=== PATIENT | female | born 1980 | race Caucasian/White ===

== ENCOUNTER 2020-06-03 16:26 | Emergency (ER) | payer OTHER, BC, SELFPAY ==
[2020-06-03 16:30] VITALS: BP 184/87; PULSE 99; RESP 18; TEMP 37.1; O2SAT 99; BMI 37.2
--- NOTE | 2020-06-03 17:42 | DI.RAD.S_ITS ---
PROCEDURE: XR FINGER RT MIN 2V INDICATIONS: cat bite TECHNIQUE: AP hand, 2 views of the 1st finger(s) acquired. COMPARISON: None. FINDINGS: Bones: No fractures or dislocations. No suspicious bony lesions. Soft tissues: No suspicious soft tissue calcifications. No radiopaque foreign bodies are seen. IMPRESSION: No focal bony abnormality is seen. No radiopaque foreign bodies are seen. If there is strong suspicion for developing osteomyelitis, please consider a dedicated MRI without and with contrast for further evaluation (assuming that there is no contraindication to MRI). Dictated by: Chemo Ramos M.D. on 06/03/2020 at 17:02 Approved by: Chemo Ramos M.D. on 06/03/2020 at 17:03
[2020-06-03] MEDS: TET,DIPH,PERTUSS(ACELL),VAC/PF 0.5 ML SYRINGE IM (18:20)
[2020-06-03] MEDS: KETOROLAC 60 MG/2 ML VIAL 30 MG IM (18:53)
[2020-06-03] MEDS: AMOXICILLIN/CLAV 875/125 MG 1 TAB PO (18:53)
--- NOTE | 2020-06-03 20:21 | ED.ANIMALBIT ---
HPI - Animal Bite <TAYE Ivey-BC - Last Filed: 06/03/20 20:30> General Chief Complaint: Animal Bite Stated Complaint: bit by a cat, right hand thumb Time Seen by Provider: 06/03/20 17:33 Source: patient Mode of arrival: Ambulatory Limitations: no limitations History of Present Illness HPI narrative: The patient is a 40-year-old female current smoker with history of diabetes who presents with a chief complaint of a cat bite earlier today. She states that she does not know when her last tetanus shot was. The cat was [place], trying to escape people and was eventually detained by police. She states that the bite was on her right thumb. She states she that she can flex and extend her thumb, though it hurts to do so. Related Data Home Medications Medication Instructions Recorded Confirmed INSULIN GLARGINE 10ML (LANTUS) #0 01/24/04 INSULIN HUMAN LISPRO 10ML (HUMALOG) 2 units SQ #0 03/06/08 Previous Rx's Medication Instructions Recorded amoxicillin-pot clavulanate 1 tab PO BID 10 Days #20 tab 06/03/20 [Augmentin] fluconazole 150 mg PO Q3D #2 tab 06/03/20 ketorolac 10 mg PO TID PRN #15 tab 06/03/20 Allergies Allergy/AdvReac Type Severity Reaction Status Date / Time droperidol [From INAPSINE] Allergy Unknown Verified 06/03/20 16:37 Review of Systems <TAYE Ivey-BC - Last Filed: 06/03/20 20:30> Review of Systems Narrative: GENERAL: Denies chills, fatigue, malaise, fever, sweats. HEENT: Denies sinus pain, ear pain, sore throat, difficulty swallowing, dizziness. RESPIRATORY: Denies dyspnea, cough, wheezing, hemoptysis, sputum. CARDIOVASCULAR: Denies chest pain, palpitations, orthopnea, edema, GASTROINTESTINAL: Denies nausea, vomiting, abdominal pain, diarrhea, constipation, melena. : Denies dysuria, frequency, incontinence, hematuria, urinary retention. MUSCULOSKELETAL: See HPI SKIN: See HPI NEUROLOGIC: Denies weakness, headache, numbness, change in speech, confusion, seizures, incoordination. PSYCHIATRIC: No concerning psychosocial issues. 12 point review of systems is negative except for those stated above Patient History <CAITLYN Ivey - Last Filed: 06/03/20 20:30> Social History Smoking Status: Current every day smoker Smoking Status: Current every day smoker tobacco type: cigarettes alcohol intake frequency: 0-2 drinks per day Substance Use Type: marijuana Exam <CAITLYN Ivey - Last Filed: 06/03/20 20:30> Narrative Exam Narrative: GENERAL: This is a well-nourished, well-developed patient, in no acute distress HEAD: Atraumatic. Normocephalic. No temporal or scalp tenderness. EYES: Pupils equal round and reactive. Extraocular motions intact. No scleral icterus. No injection or drainage. ENT: Nose without bleeding, purulent drainage or septal hematoma. Wearing mass Airway patent. NECK: Trachea midline. No JVD or lymphadenopathy. Supple, nontender, no meningeal signs. CARDIOVASCULAR: Regular rate and rhythm RESPIRATORY: No cough. No increased respiratory effort. No accessory muscle use. EXTREMITIES: Skin exam as noted for right 1st digit. Able to flex and extend right 1st digit against resistance. Capillary refill less than 2 seconds. Positive right radial pulse. BACK: Nontender without deformity or crepitance. No flank tenderness. NEURO: AOx3. SKIN: Small puncture rizo over the DIP right 1st digit. No extending erythema. No purulent drainage. Initial Vital Signs Initial Vital Signs: Vital Signs Temperature 98.8 F 06/03/20 16:30 Pulse Rate 99 H 06/03/20 16:30 Respiratory Rate 18 06/03/20 16:30 Blood Pressure 184/87 H 06/03/20 16:30 Pulse Oximetry 99 06/03/20 16:30 <Sunni Lea DO - Last Filed: 06/04/20 07:34> Initial Vital Signs Initial Vital Signs: Vital Signs Temperature 98.8 F 06/03/20 16:30 Pulse Rate 99 H 06/03/20 16:30 Respiratory Rate 18 06/03/20 16:30 Blood Pressure 184/87 H 06/03/20 16:30 Pulse Oximetry 99 06/03/20 16:30 Scores <CAITLYN Ivey - Last Filed: 06/03/20 20:30> GCS Pastor coma scale eye opening: Spontaneous Pastor coma scale verbal response: Orientated [place] coma scale motor response: Obey commands Pastor coma scale total score: 15 Course <CAITLYN Ivey - Last Filed: 06/03/20 20:30> Orders Ordered: Discontinued Medications Amoxicillin/Clavulanate Potassium (Augmentin 875-125 Mg) 1 tab PO NOW ONE Stop: 06/03/20 18:31 Last Admin: 06/03/20 18:53 Dose: 1 tab Documented by: THONY Diphtheria/Tetanus/Acell Pertussis (Adacel) 0.5 ml IM .ONCE ONE Stop: 06/03/20 17:43 Last Admin: 06/03/20 18:20 Dose: 0.5 ml Documented by: THONY Ketorolac Tromethamine (Toradol) 30 mg IM NOW ONE Stop: 06/03/20 18:46 Last Admin: 06/03/20 18:53 Dose: 30 mg Documented by: THONY Vital Signs Vital signs: Vital Signs - 8 hr 06/03/20 16:30 Temperature 98.8 F Pulse Rate 99 H Respiratory Rate 18 Blood Pressure 184/87 H Pulse Oximetry 99 <Sunni Lea DO - Last Filed: 06/04/20 07:34> Orders Ordered: Discontinued Medications Amoxicillin/Clavulanate Potassium (Augmentin 875-125 Mg) 1 tab PO NOW ONE Stop: 06/03/20 18:31 Last Admin: 06/03/20 18:53 Dose: 1 tab Documented by: THONY Diphtheria/Tetanus/Acell Pertussis (Adacel) 0.5 ml IM .ONCE ONE Stop: 06/03/20 17:43 Last Admin: 06/03/20 18:20 Dose: 0.5 ml Documented by: THONY Ketorolac Tromethamine (Toradol) 30 mg IM NOW ONE Stop: 06/03/20 18:46 Last Admin: 06/03/20 18:53 Dose: 30 mg Documented by: THONY Vital Signs Vital signs: Vital Signs - 8 hr 06/03/20 16:30 Temperature 98.8 F Pulse Rate 99 H Respiratory Rate 18 Blood Pressure 184/87 H Pulse Oximetry 99 MDM - Animal Bite <CAITLYN Ivey - Last Filed: 06/03/20 20:30> Differential Diagnosis Differential diagnosis: Likely bite by animal, cat bite and rabies contact Imaging Data Extremity x-ray #1: Radiologist's Impression: [address] [place] [id number] XRay Report Signed Patient: Mi Matthews LMR#: [id number] : 1980Acct:[id number] Age/Sex: 40 / FDate of Service: 06/03/20 Loc: ED Accession Number: [id number] Procedure: XR finger RT min 2V Ordering Provider: Clarita Desouza- PROCEDURE: XR FINGER RT MIN 2V INDICATIONS: cat bite TECHNIQUE: AP hand, 2 views of the 1st finger(s) acquired. COMPARISON: None. FINDINGS: Bones: No fractures or dislocations. No suspicious bony lesions. Soft tissues: No suspicious soft tissue calcifications. No radiopaque foreign bodies are seen. IMPRESSION: No focal bony abnormality is seen. No radiopaque foreign bodies are seen. If there is strong suspicion for developing osteomyelitis, please consider a dedicated MRI without and with contrast for further evaluation (assuming that there is no contraindication to MRI). Dictated by: Chemo Ramos M.D. on 06/03/2020 at 17:02 Approved by: Chemo Ramos M.D. on 06/03/2020 at 17:03 [facility] Narrative Medical decision making narrative: The patient is a 40-year-old female who presents with a chief complaint of cat bite earlier today. Her tetanus was updated as she does not know when her previous tetanus was. She has reassuring range of motion, no obvious infection. She is able to flex and extend her right 1st digit, is neurovascularly intact. The cat was obtained by police, who will monitor the cap for rabies symptoms. Thus we will hold off on post exposure prophylaxis for rabies as per up-to-date recommendations. Encouraged follow-up with primary care provider in the next few days. Patient was given Augmentin prescription, discussed taking with probiotic or yogurt. Patient was able to tolerate 1st dose of antibiotics in the emergency department. Also gave Toradol for pain, patient states she gets common yeast infections after antibiotics and requested Diflucan which I did give her prescription of. Patient has no questions or concerns upon discharge and states understanding return precautions as well as follow-up care. Discharge Plan Departure Patient Disposition: Home Clinical Impression: Cat bite Qualifiers: Encounter type: initial encounter Qualified Code(s): W55.01XA - Bitten by cat, initial encounter Discharge Date/Time: 06/03/20 19:53 Instructions: DI for Animal Bites, How To Perform RICE (Rest, Ice, Compress, Elevate), DI for Cat Bite Activity Restrictions/Additional Instructions: Thank you for trusting us with your care today. I am sorry that you are bit by a cat in which you a speedy recovery. I sent in 3 prescriptions to [facility]. Please take a probiotic or yogurt with the antibiotic. Please follow-up with primary care provider in the next 48-72 hours. Please monitor for extending redness, purulent drainage etcetera Please come back to the emergency department for any acute concerns. Please use rest ice compression elevation I have given you a prescription of Toradol. This is an NSAID. Do not combine it with other NSAIDs such as Aleve or ibuprofen. I suggest taking it with some food, as it can irritate your stomach. Additionally follow-up with samara FLORES as well as her primary care provider regarding the status of the cat Prescriptions: New amoxicillin-pot clavulanate [Augmentin] 875-125 mg tablet 1 tab PO BID 10 Days Qty: 20 RF: 0 ketorolac 10 mg tablet 10 mg PO TID PRN (Reason: pain) Qty: 15 RF: 0 fluconazole 150 mg tablet 150 mg PO Q3D Qty: 2 RF: 0 No Action INSULIN GLARGINE 10ML (LANTUS) Qty: 0 RF: 0 INSULIN HUMAN LISPRO 10ML (HUMALOG) 2 units SQ Qty: 0 RF: 0 Referrals: Herminia Tracey MD [Non-Staff] - <Sunni Lea DO - Last Filed: 06/04/20 07:34> Cosign ED Attending Glennaature Attestation: I was immediately available in the department for consultation. Documentation has been reviewed. I agree with assessment and plan.
== END 2020-06-03 19:53 | disposition home or self-care (01) ==
PROVIDERS: Emergency Provider Nurse Practitioner Family
DX: S61.051A Open bite of right thumb without damage to nail, initial encounter (principal); W55.01XA Bitten by cat, initial encounter; Z23 Encounter for immunization; Y99.0 Civilian activity done for income or pay
CPT/HCPCS: 73140; 90471; 96372; 99283; 90715; J1885

== ENCOUNTER → 2021-03-12 12:48 | Outpatient (CLI) | payer BC, SELFPAY ==
--- NOTE | 2021-03-12 | DI.US.S_ITS ---
PROCEDURE: US THYROID INDICATIONS: AUTOIMMUNE THYROIDITIS TECHNIQUE: Real-time scanning was performed of the thyroid gland, with image documentation. COMPARISON: None. FINDINGS: Right: Thyroid lobe measures 5.2 x 1.6 x 1.6 cm, and is diffusely heterogeneous in echotexture. Left: Thyroid lobe measures 4.2 x 1.5 x 1.3 cm, and is diffusely heterogeneous in echotexture. Isthmus: 5.1 mm thick. IMPRESSION: Diffusely heterogeneous thyroid in this patient with history of autoimmune thyroiditis. Dictated by: Cyrus CERVANTES Interpreted: Rashmi Calvin MD on 03/12/2021 at 17:00 Transcribed by: LEIDA on 03/12/2021 at 17:01 Approved by: Rashmi Calvin M.D. on 03/12/2021 at 17:37
== END ==
PROVIDERS: PCP Family Medicine; Referring Provider Family Medicine; Visit Provider Family Medicine
DX: E06.3 Autoimmune thyroiditis (principal)
CPT/HCPCS: 76536

== ENCOUNTER → 2022-09-02 15:01 | Outpatient (CLI) | payer BC, SELFPAY ==
--- NOTE | 2022-10-15 07:46 | P.HOLT.S_ITS ---
Information Engineer Report Referral & Results Date Patient Seen: 09/02/22 Requesting provider: Redd Suresh Indication: Palpitations Duration of monitoring (days): 6 Diary information: There were 21 patient triggered events and 1 patient diary entry Patient triggered events were variably associated with sinus rhythm and PVCs. Patient diary event could not be located Data: Minimum heart rate identified was 65 beats per minute at 05:08 on 09/03/2022 Maximum sinus heart rate was 145 beats per minute at 11:20 on 09/03/2022 Maximum overall heart rate was 174 beats per minute at 11:38 on 09/03/2022 during a run of ventricular tachycardia Less than 1% of identified beats were ventricular or supraventricular ectopic in origin, which would classify them as rare. There was 1 run of nonsustained monomorphic ventricular tachycardia that was 14 beats in duration at a maximum rate of 174 beats per minute There were no pauses of 3 seconds or longer or episodes of atrial fibrillation identified on this study Impression: 6 day sign painter demonstrating PVCs as a likely source of patient's sense of palpitations. Overall frequency of PVCs should be considered rare based on this study Single episode of nonsustained ventricular tachycardia as above Clinical correlation suggested
== END ==
PROVIDERS: PCP Family Medicine; Referring Provider Family Medicine; Visit Provider Family Medicine
DX: R00.2 Palpitations (principal)
CPT/HCPCS: 93244; 93246

== ENCOUNTER → 2022-12-30 08:55 | Outpatient (CLI) | payer BC, SELFPAY ==
--- NOTE | 2022-12-30 | DI.CT.S_ITS ---
PROCEDURE: CT ABDOMEN PELVIS W CON INDICATIONS: Left lower quadrant pain TECHNIQUE: After the administration of oral and IV contrast, axial sections were acquired from the lung bases to the pubic symphysis. Coronal and sagittal reformats were performed. For radiation dose reduction, the following was used: automated exposure control, adjustment of mA and/or kV according to patient size. COMPARISON: [facility], CT, ABD/PELVIS W/CON (PNL), 07/21/2014, 22:26. [facility], CT, CT KUB, 01/04/2016, 14:45. [facility], CT, ABDOMEN/PELVIS WITH CONTRAST, 04/18/2006, 16:06. [facility], CT, ABDOMEN/PELVIS WITH CONTRAST, 06/06/2017, 20:53. CT, CT ABD HEPATIC PROTOCOL, 01/10/2016, 16:37. FINDINGS: Image quality: Excellent. Lung bases: There are a couple of small 2-3 mm nodules in the left lower lobe (series 3 image 1 and 2) which were present on 06/06/2017, likely benign. Small hiatal hernia. Heart: No significant findings. ABDOMEN: Liver: Normal size. A 0.7 cm hypodense nodule is seen in segment 4 unchanged in size and appearance. Gallbladder: There is a small calcific density projecting to the posterior of gallbladder. Biliary ducts: Unremarkable. Pancreas: Unremarkable. Spleen: Unremarkable. Adrenal Glands: Unremarkable. Kidneys and Ureters: Unremarkable. Stomach and Bowel: Stomach, small bowel loops, and colon are unremarkable. There is a moderate amount of stool in colon. Normal appendix. Peritoneum: No abnormal intraperitoneal fluid. No free air. Ventral Wall: No hernia. Abdominal Nodes: No retroperitoneal or mesenteric adenopathy by size criteria. Vessels: Aorta and inferior vena cava are normal in size. PELVIS: Pelvic Organs: Uterus and ovaries are normal. There is an IUD. Bladder: Unremarkable. Pelvic Nodes: No enlarged lymph nodes. Miscellaneous: No inguinal hernias are seen. Bones: Unremarkable. IMPRESSION: 1. A cause for left lower quadrant abdominal pain is not identified. 2. Stable small left lower lobe pulmonary nodules, likely benign. 3. A 0.7 cm hypodense nodule in segment [address] liver protocol suggests focal nodular hyperplasia. MRI would be helpful for confirmation. 4. Possible gallstones vs. gallbladder wall calcification. Recommend ultrasound for further evaluation. 5. IUD in uterus. Dictated by: Vamshi Colon M.D. on 12/30/2022 at 14:51 Approved by: Vamshi Colon M.D. on 12/31/2022 at 8:20
== END ==
PROVIDERS: PCP Family Medicine; Referring Provider Family Medicine; Visit Provider Family Medicine
DX: R10.32 Left lower quadrant pain (principal); R91.8 Other nonspecific abnormal finding of lung field; K76.9 Liver disease, unspecified; Z97.5 Presence of (intrauterine) contraceptive device
CPT/HCPCS: 74177; Q9967

== ENCOUNTER → 2023-01-10 08:48 | Outpatient (CLI) | payer BC, SELFPAY ==
--- NOTE | 2023-01-10 | DI.US.S_ITS ---
PROCEDURE: US ABDOMEN LIMITED INDICATIONS: CALCULUS OF GALLBLADDER TECHNIQUE: Real-time scanning was performed of the abdominal and retroperitoneal organs, with image documentation. COMPARISON: None. FINDINGS: Liver: Liver is normal in size and homogeneous in echotexture. Gallbladder: Gallbladder is normal in sonographic appearance without gallstones, gallbladder wall thickening, pericholecystic fluid, or abnormal sonographic Linda's. Biliary ducts: Intrahepatic bile ducts are non-dilated. Extrahepatic bile duct caliber measures 4 mm. Normal is 6-7 mm or less in diameter, or 10 mm or less post-cholecystectomy. Pancreas: Visualized portions of the pancreas are sonographically normal. Miscellaneous: No free abdominal fluid. IMPRESSION: Normal sonographic evaluation of the right upper quadrant. Specifically, no evidence for cholelithiasis or acute cholecystitis. Normal sonographic appearance of the liver. Dictated by: Hank Stover M.D. on 01/10/2023 at 12:49 Approved by: Hank Stover M.D. on 01/10/2023 at 12:50
== END ==
PROVIDERS: PCP Family Medicine; Referring Provider Family Medicine; Visit Provider Family Medicine
DX: K80.20 Calculus of gallbladder without cholecystitis without obstruction (principal)
CPT/HCPCS: 76705

== ENCOUNTER 2023-01-10 10:27 | Emergency (ER) | payer BC, SELFPAY ==
[2023-01-10 11:00] VITALS: BP 136/80; PULSE 78; RESP 14; TEMP 36.3; O2SAT 99; BMI 37.2
[2023-01-10] MEDS: SODIUM CHLORIDE 0.9% 1,000 ML 1000 ML IV (11:37)
[2023-01-10] MEDS: KETOROLAC 30 MG/ML VIAL 15 MG IV (11:37)
[2023-01-10] MEDS: ONDANSETRON 4 MG/2 ML INJ IV (11:38)
[2023-01-10 11:42] LABS: Add Manual Diff / Slide Review NO; Basophils Absolute Auto 100 /uL (0-100); Basophils Percent Auto 0.6 % (0-2); Eosinophils Absolute Auto 300 /uL (0-450); Eosinophils Percent Auto 2.5 % (2-4); Hematocrit 34.4 % (36-46); Lymphocytes Absolute Auto 3500 /uL (1100-4500); Mean Corpuscular Hemoglobin 21.1 PG (26-34); Mean Corpuscular Volume 65.9 fL (80-100); Monocytes Absolute Auto 700 /uL (0-900); Neutrophils Absolute Auto 5400 /uL (1500-7000); Neutrophils Percent Auto 54.9 % (50-75); Platelet Count 448 X10^3/uL (150-400); Red Blood Cell Count 5.22 X10^6/uL (4.0-5.2); Red Cell Distribution Width 18.6 % (11.6-14.8); White Blood Cell Count 9.9 X10^3/uL (4.5-11.0)
[2023-01-10 11:50] LABS: Anisocytosis 1+
[2023-01-10 11:54] LABS: Alanine Aminotransferase 28 IU/L (<35); Albumin 4.7 g/dL (3.5-5.0); Albumin Globulin Ratio 1.1 (1.0-2.8); Alkaline Phosphatase 84 U/L (38-126); Aspartate Aminotransferase 28 IU/L (14-36); BUN Creatinine Ratio 14.5 (6-22); Bilirubin Total 0.5 mg/dL (0.2-1.3); Blood Urea Nitrogen 9 mg/dL (7-17); Calcium 9.3 mg/dL (8.4-10.2); Carbon Dioxide 29 mmol/L (22-32); Chloride 102 mmol/L (98-107); Estimated Glomerular Filt Rate > 60 mL/min (>60); Globulin 4.1 g/dL (1.7-4.1); Glucose 78 mg/dL (70-100); HEMOLYSIS < 15 (0-50); Potassium 3.8 mmol/L (3.4-5.1); Sodium 140 mmol/L (137-145); Total Protein 8.8 g/dL (6.3-8.2)
--- NOTE | 2023-01-10 12:04 | ED.ABDPAIN ---
HPI - Abdominal Pain <Niko Morgan PA-C - Last Filed: 01/10/23 19:40> General Chief Complaint: Abdominal Pain Stated Complaint: extreme LT Flank pain/LOC 30sec/leg stop working Time Seen by Provider: 01/10/23 12:01 Source: patient Mode of arrival: Ambulatory History of Present Illness HPI narrative: This is a 42-year-old female with a history kidney stones presents emergency department due to bilateral flank pain. States that the pain began worsening significantly yesterday with the pain beginning on her left side and now has radiated to her right side although she is less states she has bilateral pain. Denies any hematuria, dysuria, vaginal discharge, abdominal pain, or any other concerning signs or symptoms. Also reports some nausea but no vomiting. States that the pain was so severe that it caused her to ?pass out? for about 30 seconds but did not hit her head. Related Data Home Medications Medication Instructions Recorded Confirmed INSULIN GLARGINE 10ML (LANTUS) ##0 01/24/04 INSULIN HUMAN LISPRO 10ML (HUMALOG) 2 units SQ ##0 03/06/08 bupropion HCl 150 mg 24 hr tablet, 150 mg PO QAM 11/30/20 11/30/20 extended release levonorgestrel 21 mcg/24 hours (8 intrauterine 11/30/20 11/30/20 yrs) 52 mg intrauterine device (Mirena) levothyroxine 200 mcg tablet 200 mcg PO DAILY 11/30/20 11/30/20 levothyroxine 25 mcg capsule 25 mcg PO DAILY 11/30/20 11/30/20 rosuvastatin 5 mg tablet 5 mg PO DAILY 11/30/20 11/30/20 Previous Rx's Medication Instructions Recorded fluconazole 150 mg tablet 150 mg PO Q3D 2 doses #2 tabs 06/03/20 clindamycin phosphate 1 % lotion 1 applic topical BID hidradenitis 11/30/20 supperativa #60 mL cyclobenzaprine 10 mg tablet 10 mg PO TID 7 days #21 tabs 01/10/23 Allergies Allergy/AdvReac Type Severity Reaction Status Date / Time droperidol [From INAPSINE] Allergy Unknown Verified 01/10/23 11:05 Review of Systems <Niko Morgan PA-C - Last Filed: 01/10/23 19:40> Review of Systems Narrative: GENERAL: Denies chills, fatigue, malaise, fever, sweats. HEENT: Denies sinus pain, ear pain, sore throat, difficulty swallowing, dizziness. RESPIRATORY: Denies dyspnea, cough, wheezing, hemoptysis, sputum. CARDIOVASCULAR: Denies chest pain, palpitations, orthopnea, edema, GASTROINTESTINAL: Reports nausea, denies vomiting, abdominal pain, diarrhea, constipation, melena. : Reports bilateral flank pain, Denies dysuria, frequency, incontinence, hematuria, urinary retention. MUSCULOSKELETAL: denies weakness, joint pain, or bony pain SKIN: Denies rash, skin lesions, or other NEUROLOGIC: Denies weakness, headache, numbness, change in speech, confusion, seizures, incoordination. PSYCHIATRIC: No concerning psychosocial issues. 12 point review of systems is negative except for those stated above Patient History <Niko Morgan PA-C - Last Filed: 01/10/23 19:40> Social History Smoking Status: Current every day smoker Smoking Status: Current every day smoker tobacco type: cigarettes alcohol intake frequency: 0-2 drinks per day Substance Use Type: marijuana Exam <Niko Morgan PA-C - Last Filed: 01/10/23 19:40> Narrative Exam Narrative: GENERAL: Well-developed patient, in mild distress. HEAD: Atraumatic. Normocephalic. EYES: Pupils equal round and reactive. Extraocular motions intact. No scleral icterus. No injection or drainage. ENT: Nose without bleeding, purulent drainage. Throat without erythema, tonsillar hypertrophy or exudate. Airway patent. NECK: Trachea midline. Non tender CARDIOVASCULAR: Regular rate and rhythm without murmurs, gallops, or rubs. RESPIRATORY: Clear to auscultation. Breath sounds equal bilaterally. No wheezes, rales, or rhonchi. GASTROINTESTINAL: Abdomen soft, non-tender, nondistended. EXTREMITIES: No edema or joint tenderness. BACK: Significant bilateral CVA tenderness to palpation. NEURO: AOx3. SKIN: No rash or erythema of visible areas Initial Vital Signs Initial Vital Signs: Vital Signs Temperature 97.3 F L 01/10/23 11:00 Pulse Rate 78 01/10/23 11:00 Respiratory Rate 14 01/10/23 11:00 Blood Pressure 136/80 01/10/23 11:00 Pulse Oximetry 99 01/10/23 11:00 Oxygen Delivery Method Room Air 01/10/23 11:00 <Sunni Lea DO - Last Filed: 01/11/23 08:31> Initial Vital Signs Initial Vital Signs: Vital Signs Temperature 97.3 F L 01/10/23 11:00 Pulse Rate 78 01/10/23 11:00 Respiratory Rate 14 01/10/23 11:00 Blood Pressure 136/80 01/10/23 11:00 Pulse Oximetry 99 01/10/23 11:00 Oxygen Delivery Method Room Air 01/10/23 11:00 Course <Niko Morgan PA-C - Last Filed: 01/10/23 19:40> Orders Ordered: Discontinued Medications Sodium Chloride (Normal Saline 0.9%) 1,000 mls @ 1,000 mls/hr IV BOLUS ONE Stop: 01/10/23 12:19 Last Infusion: 01/10/23 12:40 Dose: 0 mls/hr Documented By: Admin: 01/10/23 11:37 Dose: 1,000 mls/hr Documented By: NONI Ketorolac Tromethamine (Ketorolac 30 Mg/Ml Vial) 15 mg IV NOW ONE Stop: 01/10/23 11:20 Last Admin: 01/10/23 11:37 Dose: 15 mg Documented By: NONI Ondansetron HCl (Ondansetron 4 Mg/2 Ml Inj) 4 mg IV NOW ONE Stop: 01/10/23 11:20 Last Admin: 01/10/23 11:38 Dose: 4 mg Documented By: NONI Vital Signs Vital signs: Vital Signs - 8 hr 01/10/23 15:45 Pulse Rate 78 Respiratory Rate 16 Blood Pressure 138/85 Pulse Oximetry 99 Oxygen Delivery Method Room Air <Sunni Lea DO - Last Filed: 01/11/23 08:31> Orders Ordered: Discontinued Medications Sodium Chloride (Normal Saline 0.9%) 1,000 mls @ 1,000 mls/hr IV BOLUS ONE Stop: 01/10/23 12:19 Last Infusion: 01/10/23 12:40 Dose: 0 mls/hr Documented By: Admin: 01/10/23 11:37 Dose: 1,000 mls/hr Documented By: NONI Ketorolac Tromethamine (Ketorolac 30 Mg/Ml Vial) 15 mg IV NOW ONE Stop: 01/10/23 11:20 Last Admin: 01/10/23 11:37 Dose: 15 mg Documented By: NONI Ondansetron HCl (Ondansetron 4 Mg/2 Ml Inj) 4 mg IV NOW ONE Stop: 01/10/23 11:20 Last Admin: 01/10/23 11:38 Dose: 4 mg Documented By: NONI Vital Signs Vital signs: Vital Signs - 8 hr 01/10/23 15:45 Pulse Rate 78 Respiratory Rate 16 Blood Pressure 138/85 Pulse Oximetry 99 Oxygen Delivery Method Room Air MDM - Abdominal Pain <Niko Morgan PA-C - Last Filed: 01/10/23 19:40> Lab Data 01/10/23 11:30 01/10/23 11:30 Labs: Lab Results 01/10/23 01/10/23 01/10/23 Range/Units 11:30 11:30 11:30 WBC 9.9 (4.5-11.0) X10^3/uL RBC 5.22 H (4.0-5.2) X10^6/uL Hgb 11.0 L (12.0-16.0) g/dL Hct 34.4 L (36-46) % MCV 65.9 L (80-100) fL MCH 21.1 L (26-34) PG MCHC 32.0 (30-36) % RDW 18.6 H (11.6-14.8) % Plt Count 448 H (150-400) X10^3/uL Neut % (Auto) 54.9 (50-75) % Lymph % (Auto) 35.0 (25-40) % [place] % (Auto) 7.0 (3-14) % Eos % (Auto) 2.5 (2-4) % Baso % (Auto) 0.6 (0-2) % Neut # (Auto) 5400 (0195-7098) /uL Lymph # (Auto) 3500 (5928-6299) /uL [place] # (Auto) 700 (0-900) /uL Eos # (Auto) 300 (0-450) /uL Baso # (Auto) 100 (0-100) /uL RBC Morphology Not Reportable Anisocytosis 1+ H Sodium 140 (137-145) mmol/L Potassium 3.8 (3.4-5.1) mmol/L Chloride 102 (98-107) mmol/L Carbon Dioxide 29 (22-32) mmol/L BUN 9 (7-17) mg/dL Creatinine 0.62 (0.52-1.04) mg/dL Estimated GFR > 60 (>60) mL/min BUN/Creatinine Ratio 14.5 (6-22) Glucose 78 (70-100) mg/dL Calcium 9.3 (8.4-10.2) mg/dL Total Bilirubin 0.5 (0.2-1.3) mg/dL AST 28 (14-36) IU/L ALT 28 (<35) IU/L Alkaline Phosphatase 84 (38-126) U/L Total Protein 8.8 H (6.3-8.2) g/dL Albumin 4.7 (3.5-5.0) g/dL Globulin 4.1 (1.7-4.1) g/dL Albumin/Globulin Ratio 1.1 (1.0-2.8) Serum , Qual Negative (Negative) Point of care testing: Urine Dip Bedside Urine Glucose Negative Bedside Urine Bilirubin - Negative Bedside Urine Ketone - Negative Urine Specific Harper 1.005 Bedside Urine Occult Blood - Negative Bedside Urine pH 7.0 Bedside Urine Protein - Negative Bedside Urine Urobilinogen - Negative Bedside Urine Nitrite - Negative Bedside Urine Leukocytes - Negative Esterase Imaging Data CT scan - abdomen/pelvis: Radiologist's Impression: [place] [address] CT Scan Report Signed Patient: Mi Matthews MR#: [id number] : 1980 Acct:[id number] Age/Sex: 42 / F Date of Service: 01/10/23 Loc: ED Accession Number: [id number] ?? Procedure: CT abdomen pelvis w con Ordering Provider: Niko Morgan P.A-C PROCEDURE:? CT ABDOMEN PELVIS W CON ? INDICATIONS:? Bilat kidney pain ? TECHNIQUE:? After the administration of intravenous contrast, axial sections acquired from the lung bases to the pubic symphysis.? Coronal and sagittal reformats were performed.? For radiation dose reduction, the following was used:? automated exposure control, adjustment of mA and/or kV according to patient size.? ? COMPARISON:? [facility], CT, CT ABDOMEN PELVIS W CON, 12/30/2022, 10:39. ? FINDINGS: ? Image quality:? Excellent.? ? Lung bases:? Stable 4 mm posterior left lower lobe pulmonary nodule. ? Heart:? No significant findings. ? ABDOMEN: Liver:? Unremarkable.? Stable small hepatic hypodensity involving the anterior aspect of the right hepatic dome. ? Gallbladder:? Unremarkable.? ? Biliary ducts:? Unremarkable.? ? Pancreas:? Unremarkable.? ? Spleen:? Unremarkable.? ? Adrenal Glands:? Unremarkable.? ? Kidneys and Ureters:? Kidneys are symmetric in size and enhancement, and there is no obstructive uropathy.? No perinephric inflammatory changes. Ureters are normal in course and caliber.? Stomach and Bowel:? Stomach, small bowel loops, and colon are unremarkable.? Normal appendix. Peritoneum:? No abnormal intraperitoneal fluid.? No free air.? ? Ventral Wall: ? Tiny fat containing umbilical hernia without acute inflammation.? Abdominal Nodes:? No retroperitoneal or mesenteric adenopathy by size criteria.? Vessels:? Aorta and inferior vena cava are normal in size.? ? PELVIS: Pelvic Organs:? Unremarkable.? IUD is visualized within the uterus.? Bladder:? Unremarkable.? ? Pelvic Nodes: No enlarged lymph nodes.? Miscellaneous: No inguinal hernias are seen. ? ? ? Bones:? Unremarkable.? ? ? IMPRESSION:? ? 1. CT abdomen and pelvis without acute abnormalities to explain patient's symptoms.? Specifically, normal appearance of the bilateral kidneys.? No evidence for obstructive uropathy.? No evidence to suggest cystitis. ? 2. Normal appendix. ? 3. Redemonstration of 4 mm left lower lobe pulmonary nodule.? This is likely benign. ? 4. Intrauterine device visualized within the uterus. ? 5. Stable hepatic hypodensity likely representing focal nodular hyperplasia.? Outpatient MRI is again recommended for confirmation if not already ordered.? ? ? Dictated by: Hank Stover M.D. on 01/10/2023 at 14:45 ? ? Approved by: Hank Stover M.D. on 01/10/2023 at 14:53 ? MDM Narrative Medical decision making narrative: MDM * differential diagnosis includes but not limited to nephrolithiasis, UTI, muscular injury, rib fracture * Prior records reviewed: Patient has not been here for similar complaints in the past * My lab interpretation: Lab work showed no evidence of leukocytosis or infection, kidney function within normal limits. * My imgaing interpretation: CT abdomen and pelvis showed no reason for patient's acute bilateral flank pain. * Clinical Decision Rules/Scores evaluated: None * Independent discussions with: None ED Course: This is a 42-year-old female presents emergency department due to a severe episode of left flank pain which also rated dated to her right side. Patient does have a kidney history of kidney stones and a CT abdomen and pelvis was ordered further investigate the pain. CT showed no abnormalities that would explain the patient's pain. No acute life-threatening pathologies identified. Patient's lab work was also essentially unremarkable. Patient's pain may be due to lower back muscle spasms. We will trial a course muscle relaxants. Recommended [id number] pain medication as well. Previous ultrasound of the right upper quadrant reviewed but was unremarkable as well. UA negative for any evidence of UTI. Shared Decision Making: Discussed plan with patient who is comfortable with plan Social Considerations: None Disposition: Discharged to home <Sunni Lea, - Last Filed: 01/11/23 08:31> Lab Data Labs: Lab Results 01/10/23 01/10/23 01/10/23 Range/Units 11:30 11:30 11:30 WBC 9.9 (4.5-11.0) X10^3/uL RBC 5.22 H (4.0-5.2) X10^6/uL Hgb 11.0 L (12.0-16.0) g/dL Hct 34.4 L (36-46) % MCV 65.9 L (80-100) fL MCH 21.1 L (26-34) PG MCHC 32.0 (30-36) % RDW 18.6 H (11.6-14.8) % Plt Count 448 H (150-400) X10^3/uL Neut % (Auto) 54.9 (50-75) % Lymph % (Auto) 35.0 (25-40) % [place] % (Auto) 7.0 (3-14) % Eos % (Auto) 2.5 (2-4) % Baso % (Auto) 0.6 (0-2) % Neut # (Auto) 5400 (8617-6863) /uL Lymph # (Auto) 3500 (4312-5506) /uL [place] # (Auto) 700 (0-900) /uL Eos # (Auto) 300 (0-450) /uL Baso # (Auto) 100 (0-100) /uL RBC Morphology Not Reportable Anisocytosis 1+ H Sodium 140 (137-145) mmol/L Potassium 3.8 (3.4-5.1) mmol/L Chloride 102 (98-107) mmol/L Carbon Dioxide 29 (22-32) mmol/L BUN 9 (7-17) mg/dL Creatinine 0.62 (0.52-1.04) mg/dL Estimated GFR > 60 (>60) mL/min BUN/Creatinine Ratio 14.5 (6-22) Glucose 78 (70-100) mg/dL Calcium 9.3 (8.4-10.2) mg/dL Total Bilirubin 0.5 (0.2-1.3) mg/dL AST 28 (14-36) IU/L ALT 28 (<35) IU/L Alkaline Phosphatase 84 (38-126) U/L Total Protein 8.8 H (6.3-8.2) g/dL Albumin 4.7 (3.5-5.0) g/dL Globulin 4.1 (1.7-4.1) g/dL Albumin/Globulin Ratio 1.1 (1.0-2.8) Serum , Qual Negative (Negative) Point of care testing: Urine Dip Bedside Urine Glucose Negative Bedside Urine Bilirubin - Negative Bedside Urine Ketone - Negative Urine Specific Harper 1.005 Bedside Urine Occult Blood - Negative Bedside Urine pH 7.0 Bedside Urine Protein - Negative Bedside Urine Urobilinogen - Negative Bedside Urine Nitrite - Negative Bedside Urine Leukocytes - Negative Esterase Discharge Plan Departure Patient Disposition: Home Clinical Impression: Back pain Activity Restrictions/Additional Instructions: Thank you for coming to the [facility] Emergency Department today. As we discuss the CT abdomen and pelvis showed no life-threatening abdominal processes. On the CT that is not appear to be an explanation of your bilateral flank pain. This may be muscular in nature. Please take muscle relaxants as prescribed. The CT abdomen and pelvis as well as ultrasound showed no significant abnormality I hope you feel better soon. Prescriptions: New cyclobenzaprine 10 mg tablet 10 mg PO TID 7 Days Qty: 21 0RF No Action INSULIN GLARGINE 10ML (LANTUS) Qty: 0 INSULIN HUMAN LISPRO 10ML (HUMALOG) 2 units SQ Qty: 0 levothyroxine 200 mcg tablet 200 mcg PO DAILY rosuvastatin 5 mg tablet 5 mg PO DAILY Mirena 20 mcg/24 hours (6 yrs) 52 mg intrauterine device intrauterine bupropion HCl 150 mg tablet extended release 24 hr 150 mg PO QAM levothyroxine 25 mcg capsule 25 mcg PO DAILY clindamycin phosphate 1 % lotion 1 applic topical BID Qty: 60 2RF Rx Instructions: Apply to vulva twice daily for 2 months. fluconazole 150 mg tablet 150 mg PO Q3D Qty: 2 0RF Rx Instructions: may repeat second dose 72 hrs after first dose if symptoms persist Referrals: Herminia Tracey MD [Primary Care Provider] - Stand Alone Forms: Patient Portal/API <Sunni Lea DO - Last Filed: 01/11/23 08:31> Cosign ED Attending Cosignature Attestation: I was immediately available in the department for consultation. Documentation has been reviewed.
--- NOTE | 2023-01-10 12:42 | DI.CT.S_ITS ---
PROCEDURE: CT ABDOMEN PELVIS W CON INDICATIONS: Bilat kidney pain TECHNIQUE: After the administration of intravenous contrast, axial sections acquired from the lung bases to the pubic symphysis. Coronal and sagittal reformats were performed. For radiation dose reduction, the following was used: automated exposure control, adjustment of mA and/or kV according to patient size. COMPARISON: [facility], CT, CT ABDOMEN PELVIS W CON, 12/30/2022, 10:39. FINDINGS: Image quality: Excellent. Lung bases: Stable 4 mm posterior left lower lobe pulmonary nodule. Heart: No significant findings. ABDOMEN: Liver: Unremarkable. Stable small hepatic hypodensity involving the anterior aspect of the right hepatic dome. Gallbladder: Unremarkable. Biliary ducts: Unremarkable. Pancreas: Unremarkable. Spleen: Unremarkable. Adrenal Glands: Unremarkable. Kidneys and Ureters: Kidneys are symmetric in size and enhancement, and there is no obstructive uropathy. No perinephric inflammatory changes. Ureters are normal in course and caliber. Stomach and Bowel: Stomach, small bowel loops, and colon are unremarkable. Normal appendix. Peritoneum: No abnormal intraperitoneal fluid. No free air. Ventral Wall: Tiny fat containing umbilical hernia without acute inflammation. Abdominal Nodes: No retroperitoneal or mesenteric adenopathy by size criteria. Vessels: Aorta and inferior vena cava are normal in size. PELVIS: Pelvic Organs: Unremarkable. IUD is visualized within the uterus. Bladder: Unremarkable. Pelvic Nodes: No enlarged lymph nodes. Miscellaneous: No inguinal hernias are seen. Bones: Unremarkable. IMPRESSION: 1. CT abdomen and pelvis without acute abnormalities to explain patient's symptoms. Specifically, normal appearance of the bilateral kidneys. No evidence for obstructive uropathy. No evidence to suggest cystitis. 2. Normal appendix. 3. Redemonstration of 4 mm left lower lobe pulmonary nodule. This is likely benign. 4. Intrauterine device visualized within the uterus. 5. Stable hepatic hypodensity likely representing focal nodular hyperplasia. Outpatient MRI is again recommended for confirmation if not already ordered. Dictated by: Hank Stover M.D. on 01/10/2023 at 14:45 Approved by: Hank Stover M.D. on 01/10/2023 at 14:53
[2023-01-10 14:01] LABS: Pregnancy Test Serum,Qual Negative (Negative)
[2023-01-10 15:45] VITALS: BP 138/85; PULSE 78; RESP 16; O2SAT 99
== END 2023-01-10 15:46 | disposition home or self-care (01) ==
PROVIDERS: Emergency Medicine; Emergency Provider Physician Assistant Medical; PCP Family Medicine
DX: M54.9 Dorsalgia, unspecified (principal); R10.9 Unspecified abdominal pain; K80.20 Calculus of gallbladder without cholecystitis without obstruction
CPT/HCPCS: 36415; 74177; 76705; 80053; 81003; 84703; 85025; 96361; 96374; 96375; 99284; J1885; J2405; Q9967

== ENCOUNTER → 2023-07-08 16:25 | Outpatient (CLI) | payer BC, SELFPAY ==
[2023-07-08 16:40] LABS: Add Manual Diff / Slide Review NO; Basophils Absolute Auto 100 /uL (0-100); Basophils Percent Auto 0.6 % (0-2); Eosinophils Absolute Auto 100 /uL (0-450); Eosinophils Percent Auto 1.1 % (2-4); Hematocrit 32.6 % (36-46); Hemoglobin 10.3 g/dL (12.0-16.0); Lymphocytes Absolute Auto 3100 /uL (1100-4500); Lymphocytes Percent Auto 24.7 % (25-40); Mean Corpuscular HGB Conc 31.5 % (30-36); Mean Corpuscular Hemoglobin 20.7 PG (26-34); Mean Corpuscular Volume 65.8 fL (80-100); Monocytes Absolute Auto 700 /uL (0-900); Monocytes Percent Auto 5.4 % (3-14); Neutrophils Absolute Auto 8400 /uL (1500-7000); Neutrophils Percent Auto 68.2 % (50-75); Platelet Count 421 X10^3/uL (150-400); Red Blood Cell Count 4.96 X10^6/uL (4.0-5.2); Red Cell Distribution Width 19.1 % (11.6-14.8); White Blood Cell Count 12.4 X10^3/uL (4.5-11.0)
[2023-07-08 16:52] LABS: Lactate (Lactic Acid) 0.9 mmol/L (0.7-2.1)
[2023-07-08 16:55] LABS: C-Reactive Protein Quant 3.6 mg/dL (<1.0)
[2023-07-08 17:09] LABS: Hypochromasia 1+; Microcytosis 2+; Polychromasia 1+
== END ==
PROVIDERS: PCP Family Medicine; Referring Provider Student in an Organized Health Care Education/Training Program; Visit Provider Student in an Organized Health Care Education/Training Program
DX: L02.91 Cutaneous abscess, unspecified (principal); R53.81 Other malaise; R53.83 Other fatigue; E10.9 Type 1 diabetes mellitus without complications
CPT/HCPCS: 36415; 83605; 85025; 86140

== ENCOUNTER → 2025-02-09 14:55 | Outpatient (CLI) | payer BC, SELFPAY ==
--- NOTE | 2025-02-09 14:56 | DI.MG.S_ITS ---
MM screening mammo BI: 02/09/2025. BI-RADS: 1 CLINICAL: 45-year old female for bilateral screening mammogram. Tyrer-Cuzick lifetime risk of 5.4%. No personal or first-degree family history of breast cancer. PRIOR EXAMS: None. This is a baseline mammogram. MAMMOGRAPHY TECHNIQUE: 2D and 3D (tomosynthesis) digital mammographic views obtained, with additional images as needed for full coverage. Current study was also evaluated with a Computer Aided Detection (CAD) system. DENSITY B. There are scattered areas of fibroglandular density. MAMMOGRAPHY FINDINGS Bilateral: No suspicious mass, asymmetry, microcalcification, or other abnormality seen. IMPRESSION: * No evidence of malignancy. RECOMMENDATIONS Bilateral * Annual screening mammography. OVERALL ASSESSMENT CATEGORY BI-RADS-1: Negative. The [employer] recommends annual screening mammography beginning at age 40 for women with average risk of breast cancer. ELECTRONICALLY SIGNED: Lili Pereira M.D. on 02/13/2025 at 11:57:59 PM PT Interpreting Station ID: [id number]
== END ==
PROVIDERS: PCP Family Medicine; Referring Provider Family Medicine; Visit Provider Family Medicine
DX: Z12.31 Encounter for screening mammogram for malignant neoplasm of breast (principal)
CPT/HCPCS: 77063; 77067

== ENCOUNTER 2025-04-19 19:39 | Observation (INO) | payer OTHER, SELFPAY ==
[2025-04-19 19:48] VITALS: BP 171/76; PULSE 82; RESP 19; TEMP 36.6; O2SAT 96; BMI 39.8
--- NOTE | 2025-04-19 19:55 | DI.RAD.S_ITS ---
PROCEDURE: XR CHEST 1V INDICATIONS: Chest Pain TECHNIQUE: One view of the chest was acquired. COMPARISON: None. FINDINGS: Surgical changes and devices: None. Lungs and pleura: Lungs are clear. No pleural effusions or pneumothorax. Mediastinum: Mediastinal contours appear normal. Heart size is normal. Bones and chest wall: No suspicious bony lesions. Overlying soft tissues appear unremarkable. IMPRESSION: No acute cardiopulmonary abnormality is seen. Approved by: Lili Pereira M.D.,Ph.D. on 04/19/2025 at 21:14
--- NOTE | 2025-04-19 19:55 | EKG_ITS ---
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
[2025-04-19 20:26] LABS: Add Manual Diff / Slide Review NO; Hematocrit 36.5 % (36-46); Hemoglobin 12.0 g/dL (12.0-16.0); Lymphocytes Absolute Auto 2900 /uL (1100-4500); Mean Corpuscular HGB Conc 32.7 % (30-36); Mean Corpuscular Hemoglobin 24.5 PG (26-34); Mean Corpuscular Volume 74.7 fL (80-100); Platelet Count 352 X10^3/uL (150-400)
[2025-04-19 20:33] LABS: INR 1.0 (0.9-1.3); Prothrombin Time 11.0 SECONDS (9.4-12.5)
[2025-04-19 20:36] LABS: PTT Partial Thromboplastin Tim 31 SECONDS (25.1-36.5)
[2025-04-19 20:44] LABS: Alanine Aminotransferase 21 IU/L (<35); Albumin 4.8 g/dL (3.5-5.0); Albumin Globulin Ratio 1.6 (1.0-2.8); Alkaline Phosphatase 72 U/L (38-126); Blood Urea Nitrogen 9 mg/dL (7-17); Calcium 9.4 mg/dL (8.4-10.2); Carbon Dioxide 23 mmol/L (22-32); Chloride 104 mmol/L (98-107); Creatine Kinase 125 U/L (30-135); Estimated Glomerular Filt Rate > 60 mL/min (>60); Globulin 3.0 g/dL (1.7-4.1); Glucose 159 mg/dL (70-99); HEMOLYSIS 44 (0-50); Lipase 59 U/L (23-300); Magnesium 1.8 mg/dL (1.6-2.3); Potassium 4.2 mmol/L (3.4-5.1); Sodium 135 mmol/L (137-145); Total Protein 7.8 g/dL (6.3-8.2)
[2025-04-19 20:55] LABS: NT-proBNP (BNP-Adult 18+) 72 pg/mL (<125); Troponin I < 0.012 ng/mL (0.01-0.034)
--- NOTE | 2025-04-19 23:06 | ED_ITS ---
HPI - Chest Pain General Chief Complaint: Chest Pain Stated Complaint: chest pain n/v left arm pain Time Seen by Provider: 04/19/25 23:05 Source: patient Mode of arrival: Ambulatory Limitations: no limitations History of Present Illness HPI narrative: 45-year-old female with no known coronary artery disease with resolve left anterior chest pain. Multiple cardiac risk factors, diabetes on insulin, hypertension on therapy, hyperlipidemia on therapy, history of smoking current, family history of CAD with father having three-vessel bypass age 50. Patient does not recall previous cardiac catheterization, might have had a stress test pre-COVID before 2019. Had left anterior sharp quality chest discomfort onset with mild exertion 7:00 p.m., with radiation to her left jaw and left back and left arm. Resolved without specific treatment. No recent cough, fevers or chills. No history of blood clots to legs or lungs. She has not take blood thinner medications. No injury, trauma, new activities. No associated nausea or vomiting, nor diaphoresis. MD complaint: chest pain Related Data Home Medications ?Medication ?Instructions ?Recorded ?Confirmed INSULIN GLARGINE 10ML (LANTUS) ##0 01/24/04 07/08/23 INSULIN HUMAN LISPRO 10ML (HUMALOG) 2 units SQ ##0 06/0607/08/23 bupropion HCl 150 mg 24 hr tablet, 300 mg PO QAM 11/3004/20/25 extended release levonorgestrel 21 mcg/24 hr (up to intrauterine 07/08/23 8 years) 52 mg intrauterine device (Mirena) levothyroxine 200 mcg tablet 200 mcg PO DAILY 11/30/20 04/20/25 levothyroxine 25 mcg capsule 75 mcg PO DAILY 11/30/20 04/20/25 rosuvastatin 5 mg tablet 5 mg PO DAILY 11/30/2004/20 amlodipine 2.5 mg tablet 2.5 mg PO DAILY 07/08/2312/14 losartan 50 mg-hydrochlorothiazide 1 tab PO DAILY 06/2004/20/25 12.5 mg tablet metformin 500 mg tablet 250 mg PO BID 07/08/2304/20 Allergies Allergy/AdvReac Type Severity Reaction Status Date / Time shellfish derived Allergy Mild Swelling Verified 04/19/25 19:54 of Lip/Tongue/Throat droperidol (From INAPSINE) Allergy Unknown Verified 04/19/25 19:54 Patient History Social History household members: spouse Smoking Status: Current every day smoker alcohol intake: never Smoking Status: Current every day smoker tobacco type: cigarettes alcohol intake frequency: 0-2 drinks per day Exam Narrative Exam Narrative: GENERAL: Well-developed patient, in mild distress. HEAD: Atraumatic. Normocephalic. EYES: Pupils equal round and reactive. Extraocular motions intact. No scleral icterus. No injection or drainage. ENT: Nose without bleeding, purulent drainage. Throat without erythema, tonsillar hypertrophy or exudate. Airway patent. NECK: Trachea midline. Non tender CARDIOVASCULAR: Regular rate and rhythm without murmurs, gallops, or rubs. RESPIRATORY: Clear to auscultation. Breath sounds equal bilaterally. No wheezes, rales, or rhonchi. GASTROINTESTINAL: Abdomen soft, non-tender, nondistended. EXTREMITIES: No edema or joint tenderness. BACK: Nontender without deformity or crepitance. No flank tenderness. NEURO: AOx3. Motor functions grossly nonfocal. SKIN: No rash or erythema of visible areas Initial Vital Signs Initial Vital Signs: Vital Signs Temperature 97.9 F 04/19/25 19:48 Pulse Rate 82 04/19/25 19:48 Respiratory Rate 19 04/19/25 19:48 Blood Pressure 171/76 H 04/19/25 19:48 Pulse Oximetry 96 04/19/25 19:48 Oxygen Delivery Method Room Air 04/19/25 19:48 Course Orders Ordered: ED Orders 04/19/25 22:35 Troponin I Stat 04/20/25 00:33 EKG-12 Lead Stat 04/20/25 01:25 stress [NM may perf SPECT rest & str] Routine 04/20/25 06:00 Basic Metabolic Panel DAILY Complete Blood Count AUTO DIFF Routine Hemoglobin A1C% w Est Avg Glu Routine Lipid Panel Routine Magnesium Routine TSH w/ Reflex to FT4 Routine Troponin I Routine Acetaminophen (Acetaminophen 325 Mg Tablet) 650 mg PO Q6H PRN PRN Reason: Fever/Mild Pain (1-3) Last Admin: 04/20/25 02:47 Dose: 650 mg Documented By: SH Amlodipine Besylate (Amlodipine 5 Mg Tablet) 2.5 mg PO DAILY [facility] Atorvastatin Calcium (Atorvastatin 20 Mg Tablet) 10 mg PO DAILY [facility] Bupropion HCl (Bupropion Xl 150 Mg Tab) 150 mg PO DAILY [facility] Hydrochlorothiazide (Hydrochlorothiazide 25 Mg Tablet) 12.5 mg PO DAILY [facility] Dextrose (D10w) 100 mls @ 999 mls/hr IV PRN PRN PRN Reason: Hypoglycemia Insulin Human Lispro (Insulin Lispro 100 Unit/Ml 3ml Vial) 0 unit SUBCUT Q6HR REJI; Protocol Levothyroxine Sodium (Levothyroxine 75 Mcg Tablet) 75 mcg PO DAILY@0600 [facility] Levothyroxine Sodium (Levothyroxine 100 Mcg Tablet) 200 mcg PO DAILY@0600 [facility] Losartan Potassium (Losartan 50 Mg Tablet) 50 mg PO DAILY [facility] Metformin HCl (Metformin Hcl 500 Mg Tablet) 250 mg PO 0800,1700 [facility] Naloxone HCl (Naloxone 0.4 Mg/Ml Vial) 0.2 mg IV Q2MIN PRN PRN Reason: Opiate Reversal Ondansetron HCl (Ondansetron 4 Mg/2 Ml Inj) 4 mg IV Q8HR PRN PRN Reason: Nausea And Vomiting Oxycodone HCl (Oxycodone Ir 5 Mg Tablet) 5 mg PO Q3H PRN PRN Reason: Pain, Moderate (4-6) Pantoprazole Sodium (Pantoprazole Dr 20 Mg Tablet) 20 mg PO DAILY [facility] Discontinued Medications Aspirin (Aspirin 81 Mg Chew Tab) 324 mg PO NOW ONE Stop: 04/19/25 19:56 Last Admin: 04/20/25 00:18 Dose: Not Given Documented By: NEY Aspirin (Aspirin 81 Mg Chew Tab) 324 mg PO NOW ONE Stop: 04/19/25 23:26 Last Admin: 04/20/25 00:18 Dose: 324 mg Documented By: NEY Sodium Chloride (Normal Saline 0.9%) 1,000 mls @ 1,000 mls/hr IV BOLUS ONE Stop: 04/20/25 01:39 Last Infusion: 04/20/25 01:54 Dose: Infused Documented By: Admin: 04/20/25 00:47 Dose: 1,000 mls/hr Documented By: NEY Levothyroxine Sodium (Levothyroxine 100 Mcg Tablet) 200 mcg PO QACBREAK [facility] Levothyroxine Sodium (Levothyroxine 125 Mcg Tablet) 25 mcg PO QACBREAK [facility] Levothyroxine Sodium (Levothyroxine 75 Mcg Tablet) 75 mcg PO DAILY@0600 [facility] Morphine Sulfate (Morphine 4 Mg/Ml Inj) 4 mg IV NOW ONE Stop: 04/20/25 00:34 Last Admin: 04/20/25 00:47 Dose: 4 mg Documented By: NEY Vital Signs Vital signs: Vital Signs - 8 hr 04/20/25 00:30 04/20/25 00:31 04/20/25 00:55 Pulse Rate 75 72 76 Respiratory Rate 17 16 Blood Pressure 145/65 H Pulse Oximetry 98 96 98 Oxygen Delivery Method Room Air 04/20/25 00:55 04/20/25 01:00 04/20/25 01:00 Pulse Rate 75 Respiratory Rate 12 Blood Pressure 160/72 H 147/67 H Pulse Oximetry 97 Oxygen Delivery Method MDM - Chest Pain Lab Data Lab results narrative: White blood cell count 9700, hemoglobin 12, platelets adequate. Glucose 159. Normal renal function. Sodium 135 slight decreased. Normal potassium and serum CO2. Normal liver functions. Normal lipase. Troponin negative/unmeasurable. Interval troponin also negative/unmeasurable. 04/19/25 20:16 04/19/25 20:16 Labs: Lab Results 04/19/25 04/19/25 Range/Units 20:16 22:35 WBC 9.7 (4.5-11.0) X10^3/uL RBC 4.88 (4.0-5.2) X10^6/uL Hgb 12.0 (12.0-16.0) g/dL Hct 36.5 (36-46) % MCV 74.7 L (80-100) fL MCH 24.5 L (26-34) PG MCHC 32.7 (30-36) % RDW 17.5 H (11.6-14.8) % Plt Count 352 (150-400) X10^3/uL Neut % (Auto) 61.7 (50-75) % Lymph % (Auto) 30.3 (25-40) % [place] % (Auto) 5.4 (3-14) % Eos % (Auto) 1.9 L (2-4) % Baso % (Auto) 0.7 (0-2) % Neut # (Auto) 6000 (7316-4330) /uL Lymph # (Auto) 2900 (5435-4442) /uL [place] # (Auto) 500 (0-900) /uL Eos # (Auto) 200 (0-450) /uL Baso # (Auto) 100 (0-100) /uL PT 11.0 (9.4-12.5) SECONDS INR 1.0 (0.9-1.3) APTT 31 (25.1-36.5) SECONDS Sodium 135 L (137-145) mmol/L Potassium 4.2 (3.4-5.1) mmol/L Chloride 104 (98-107) mmol/L Carbon Dioxide 23 (22-32) mmol/L BUN 9 (7-17) mg/dL Creatinine 0.65 (0.52-1.04) mg/dL Estimated GFR > 60 (>60) mL/min BUN/Creatinine Ratio 13.8 (6-22) Glucose 159 H (70-99) mg/dL Calcium 9.4 (8.4-10.2) mg/dL Magnesium 1.8 (1.6-2.3) mg/dL Total Bilirubin 0.6 (0.2-1.3) mg/dL AST 30 (14-36) IU/L ALT 21 (<35) IU/L Alkaline Phosphatase 72 (38-126) U/L Total Creatine Kinase 125 (30-135) U/L Troponin I < 0.012 < 0.012 (0.01-0.034) ng/mL NT-Pro-B Natriuret Pep 72 (<125) pg/mL Total Protein 7.8 (6.3-8.2) g/dL Albumin 4.8 (3.5-5.0) g/dL Globulin 3.0 (1.7-4.1) g/dL Albumin/Globulin Ratio 1.6 (1.0-2.8) Lipase 59 (23-300) U/L Imaging Data Chest x-ray: Radiologist's Impression: [address] [address] XRay Report Signed Patient: Mi Matthews MR#: [id number] : 1980 Acct:[id number] Age/Sex: 45 / F Date of Service: 04/19/25 Loc: ED Accession Number: [id number] Procedure: XR chest 1V Ordering Provider: Javier Morton MD PROCEDURE: XR CHEST 1V INDICATIONS: Chest Pain TECHNIQUE: One view of the chest was acquired. COMPARISON: None. FINDINGS: Surgical changes and devices: None. Lungs and pleura: Lungs are clear. No pleural effusions or pneumothorax. Mediastinum: Mediastinal contours appear normal. Heart size is normal. Bones and chest wall: No suspicious bony lesions. Overlying soft tissues appear unremarkable. IMPRESSION: No acute cardiopulmonary abnormality is seen. Approved by: Lili Pereira M.D.,Ph.D. on 04/19/2025 at 21:14 ECG Data Attestation: I personally reviewed and interpreted this ECG as follows: Interpretation: 2002, normal sinus rhythm with rate of 82, no obvious ST segment elevation or depression changes. SD 168, QRS 90, QTC 464. 0039, normal sinus rhythm with rate 72, no obvious ST segment elevation or depression changes. SD 164, QRS 88, QTC 457. MDM Narrative Medical decision making narrative: 45-year-old female with chest pain. Multiple risk factors of diabetes, hypertension, hyperlipidemia, smoking, family history. Sharp quality left anterior pain, radiating to left jaw and arm and back, now resolved without specific treatment. Oral aspirin given. EKG without obvious ischemic changes. Sinus rhythm. Chest x-ray no acute changes. See radiology report. Lab data: White blood cell count 9700, hemoglobin 12, platelets adequate. Glucose 159. Normal renal function. Sodium 135 slight decreased. Normal potassium and serum CO2. Normal liver functions. Normal lipase. Troponin negative/unmeasurable. Interval troponin also negative/unmeasurable. Still chest pain free. Aspirin given. Multiple cardiac risk factors outlined above, no recent provocative cardiac stress testing. We will contact Cardiology. 0030, case discussed with cardiology Dr. Rashid, who agrees with need for further provocative cardiac testing, believes patient can be managed here with nuclear stress testing tomorrow if available. [facility] [facility] regarding availablility of nuc med stress testing. [facility] [place]uc med available tomorrow. 0115, case discussed with hospitalist Dr. Araya who accepts patient for admission Critical Care Time Critical Care Time Total Critical Care Time: 35 Attestation: The high probability of a clinically significant, sudden or life threatening deterioration of the [cardiopulmonary] system(s) required my full and direct attention, intervention and personal management. The aggregate critical care time was [35] minutes. This time is in addition to time spent performing reported procedures but includes the following: [x] Data Review and interpretation [x] Patient assessment and monitoring of vital signs [x] Documentation [x] Medication orders and management Discharge Plan Departure Patient Disposition: Admitted as Observation Clinical Impression: Chest pain Qualifiers: Chest pain type: precordial pain Qualified Code(s): R07.2 - Precordial pain Admit Date/Time: 04/20/25 01:26 Admit Provider: Chago Araya
[2025-04-19 23:27] LABS: Troponin I < 0.012 ng/mL (0.01-0.034)
[2025-04-20] VITALS (9 sets, daily range): BP systolic 112–160; BP diastolic 62–88; PULSE 72–76; RESP 12–18; TEMP 36.4–36.6; O2SAT 94–99; BMI 41.2
[2025-04-20] MEDS: ASPIRIN 81 MG CHEW TAB 324 MG PO (00:18)
--- NOTE | 2025-04-20 00:33 | EKG_ITS ---
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
[2025-04-20] MEDS: MORPHINE 4 MG/ML INJ IV (00:47)
[2025-04-20] MEDS: SODIUM CHLORIDE 0.9% 1,000 ML 1000 ML IV (00:47)
--- NOTE | 2025-04-20 01:25 | DI.NM.S_ITS ---
PROCEDURE: NM DARIUS PERF SPECT REST & STR Rest and exercise myocardial perfusion SPECT with gated imaging and ejection fraction RADIOPHARMACEUTICAL: 23.5 mCi Tc-99m sestamibi IV at rest and 26.0 mCi Tc-99m sestamibi IV at peak exercise. A 2 day-protocol was performed. INDICATIONS: chest pain PQRS ATTESTATIONS: Measure 322 - Is this imaging test primarily performed on a low-risk surgery patient for preoperative evaluation within 30 days preceding their low-risk non-cardiac surgery? Low-risk surgery is defined as cardiac or myocardial infarction less than 1%, including (but not limited to) endoscopic procedures, superficial procedures, cataract surgery, and excisional breast surgery: Answer: No Measure 323 - Is this imaging test performed primarily for the monitoring of an asymptomatic patient who had percutaneous coronary intervention on the visit date or within 2 years of the visit date? Answer: No Measure 324 - Is this imaging test performed primarily for the initial detection and risk assessment on an asymptomatic, low coronary heart disease patient? Low CHD risk definition = clinicians should consider the maximum number of available patient factors used to estimate risk based on [place] (ATP III criteria), typically age, gender, diabetes, smoking status, and use of blood pressure medication, and integrate age appropriate estimates for missing elements, such as LDL or standard blood pressure. Answer: No TECHNIQUE: Radiopharmaceutical was injected at peak stress test, and also at rest. SPECT images were obtained. SPECT myocardial perfusion images were displayed in short axis, horizontal long axis, and vertical long axis views. Gated images were reviewed using [employer] software. COMPARISON: None. CARDIAC STRESS: A standard Nathanael treadmill exercise tolerance test was performed by the patient under the supervision of an attending staff. The patient exercised for 7 minutes and 16 seconds; functional aerobic impairment (ROBB) is +11%. Hemodynamic data: There is normal blood pressure and heart rate response to exercise stress. Patient achieved 93% of maximum predicted heart rate at peak exercise. Symptoms: Patient denied chest pain during exercise. EKG: No diagnostic EKG changes of ischemia; no ectopy. FINDINGS: Raw data: There is good myocardial labeling by radiotracer. No significant motion artifacts. Agnw-km-spazw ratio is not calculated (normal is less than 0.38 for sestamibi tracer, and less than 0.50 for thallium tracer). Left ventricle function: Gated images demonstrate normal left ventricle wall thickening. No segmental wall motion abnormality. No transient ischemic dilation; TID is 1.12 (normal less than 1.3). The left ventricle resting end-diastolic volume is 102 mL. Left ventricle stress ejection fraction is 77%; normal values are above 45%. Myocardial perfusion: Resting images had mild hypoperfusion in the inferior and apical segment. Stress images had worsening hypoperfusion in the inferior and apical segments. Prone images had no perfusion defects. These findings most likely represents attenuation. No other perfusion defects identified. IMPRESSION: 1. Negative exercise myocardial perfusion scan for ischemia and infarction. 2. Below average exercise tolerance. Dictated by: Kiet Hurtado M.D. on 04/21/2025 at 12:53 Approved by: Kiet Hurtado M.D. on 04/21/2025 at 12:55
--- NOTE | 2025-04-20 01:25 | PC.NURSE ---
Pt requesting 50mg benedryl for hives. States spontaneous urticaria for which she takes benedryl 50mg nightly. Hives noted to L arm where BP cuff was. Dr Morton notified, OK to take 50 mg home benedryl.
--- NOTE | 2025-04-20 01:26 | PM.HP.1 ---
History of Present Illness History of Present Illness Chief complaint: chest pain n/v left arm pain Narrative: 45F with PMH of DM2 on insulin, HTN, hyperlipidemia, hypothyroidism, tobacco use disorder ongoing, FH of CAD with father having CABG age 50 but no personal h/o CAD presents with acute left sharp chest pain with mild exertion at 7p and radiating to left side of jaw, back, and arm. Self-resolved. No h/o cardiac cath. Reports may have had stress test in 2018/2018. No other symptoms, injuries, trauma; including sweats, nausea/vomiting, fever, chills, cough. Does have hormonal IUD. In ED, labs including troponin were acutely unremarkable. EKG was unremarkable. ED spoke to cardiology who recommended nuclear stress which can apparently be done at this hospital on 04/20. First time this has happened. [facility] Social History Smoking Status: Current every day smoker Meds Home Medications and Allergies Home Medications ?Medication ?Instructions ?Recorded ?Confirmed ?Type INSULIN GLARGINE 10ML (LANTUS) ##0 01/24/04 07/08/23 History INSULIN HUMAN LISPRO 10ML (HUMALOG) 2 units SQ ##0 03/06/08 07/08/23 History bupropion HCl 150 mg 24 hr tablet, 150 mg PO QAM 11/30/20 07/08/23 History extended release levonorgestrel 21 mcg/24 hr (up to intrauterine 11/30/20 07/08/23 History 8 years) 52 mg intrauterine device (Mirena) levothyroxine 200 mcg tablet 200 mcg PO DAILY 11/30/20 07/08/23 History levothyroxine 25 mcg capsule 25 mcg PO DAILY 11/30/20 07/08/23 History rosuvastatin 5 mg tablet 5 mg PO DAILY 11/30/20 07/08/23 History amlodipine 2.5 mg tablet 2.5 mg PO DAILY 07/08/23 07/08/23 History losartan 50 mg-hydrochlorothiazide 1 tab PO DAILY 07/08/23 07/08/23 History 12.5 mg tablet metformin 500 mg tablet 500 mg PO BID 07/08/23 07/08/23 History Allergies Allergy/AdvReac Type Severity Reaction Status Date / Time shellfish derived Allergy Mild Swelling Verified 04/19/25 19:54 of Lip/Tongue/Throat droperidol (From INAPSINE) Allergy Unknown Verified 04/19/25 19:54 Review of Systems Review of Systems Narrative: Per HPI. Rest of 10-system review negative. Exam Vital Signs (past 8 hours): - 04/19/25 19:48 04/20/25 00:30 04/20/25 00:31 Temperature 97.9 F Pulse Rate 82 75 72 Respiratory Rate 19 17 16 Blood Pressure 171/76 H 145/65 H Pulse Oximetry 96 98 96 Oxygen Delivery Method Room Air Room Air 04/20/25 00:55 04/20/25 00:55 04/20/25 01:00 Temperature Pulse Rate 76 Respiratory Rate Blood Pressure 160/72 H 147/67 H Pulse Oximetry 98 Oxygen Delivery Method 04/20/25 01:00 Temperature Pulse Rate 75 Respiratory Rate 12 Blood Pressure Pulse Oximetry 97 Oxygen Delivery Method Oxygen Delivery Method Room Air Narrative Exam Narrative: Patient was evaluated entirely through 2-way audio/video telemedicine with RN assistance in exam. Physician was not present at beside in person at any time for this evaluation. Consent for telemedicine obviously obtained from patient. Const Other: AA, NAD, overweight HENMT Other: NC/AT, anicteric sclerae, OP clear. normal speech. Resp Other: RRR w/o w/r Cardio Other: RRR GI Other: S/NT/+BS Skin Other: mild hives - chronic per patient. Neuro Other: normal speech, movements Extrem Other: no edema Psych Other: normal mood, appropriate affect Objective ECG Impression: Normal sinus rhythm - official read Imaging Chest x-ray: Radiologist's impression: No acute disease Labs 04/19/25 20:16 04/19/25 20:16 Labs: Laboratory Results - last 24 hr 04/19/25 04/19/25 20:16 22:35 WBC 9.7 RBC 4.88 Hgb 12.0 Hct 36.5 MCV 74.7 L MCH 24.5 L MCHC 32.7 RDW 17.5 H Plt Count 352 Neut % (Auto) 61.7 Lymph % (Auto) 30.3 [place] % (Auto) 5.4 Eos % (Auto) 1.9 L Baso % (Auto) 0.7 Neut # (Auto) 6000 Lymph # (Auto) 2900 [place] # (Auto) 500 Eos # (Auto) 200 Baso # (Auto) 100 PT 11.0 INR 1.0 APTT 31 Sodium 135 L Potassium 4.2 Chloride 104 Carbon Dioxide 23 BUN 9 Creatinine 0.65 Estimated GFR > 60 BUN/Creatinine Ratio 13.8 Glucose 159 H Calcium 9.4 Magnesium 1.8 Total Bilirubin 0.6 AST 30 ALT 21 Alkaline Phosphatase 72 Total Creatine Kinase 125 Troponin I < 0.012 < 0.012 NT-Pro-B Natriuret Pep 72 Total Protein 7.8 Albumin 4.8 Globulin 3.0 Albumin/Globulin Ratio 1.6 Lipase 59 Assessment & Plan Assessment and plan (1) Chest pain: Qualifiers: Chest pain type: precordial pain Qualified Code(s): R07.2 - Precordial pain Status: Acute Assessment & Plan narrative: 1. Acute unstable angina with no prior history of CAD but multiple personal and family risk factors for CAD, now resolved, POA - Risk factors: DM2, HTN, Hyperlipidemia, TUD, FH early CAD - negative troponin, EKG - ED discussed with cardiology - admit to observation, telemetry - for nuclear stress test tomorrow - troponin trend in AM - check thyroid level, lipid panel, A1c - negative LFTs, lipase, renal dysfunction - no signs of acute infection - NPO for stress test - received ASA - opiate for severe pain - O2 to SaO2>92% - PPI - if stress test negative and no recurrence of chest pain, likely discharge by evening 2. DM2, on insulin - NPO for stress test - hold Lantus, metformin - SSI - check A1c 3. HTN - continue ARB, thiazide diuretic, amlodipine - goal JNC <130/90 4. Hyperlipidemia - continue statin - check lipid panel 5. Hypothyroidism - continue replacement therapy - check TSH reflex fT4 6. Tobacco use disorder, ongoing - cessation counseling - continue buproprion 7. Microcytosis - Hgb stable - MCV is improved from 2022 - not on iron supplementation - outpatient follow up for iron supplementation, stool occult, or colonoscopy Discussed with ED attending and RN Code: Full DVT prophylaxis: SCDs Dispo: home LOS: likely <24 hours if negative stress Time-Based Coding :: [TOTAL MINUTES] spent with patient and on the chart (including review of chart, obtaining history, exam, reviewing outside data, placing orders, documenting exam and treatment plan, and counseling patient) on [DATE].
--- NOTE | 2025-04-20 02:11 | PC.NURSE ---
Admitted to AC from ED @ 02:00.
[2025-04-20] MEDS: ACETAMINOPHEN 325 MG TABLET 650 MG PO (02:47)
[2025-04-20] MEDS: LEVOTHYROXINE 100 MCG TABLET 200 MCG PO (05:52)
[2025-04-20] MEDS: LEVOTHYROXINE 75 MCG TABLET PO (05:52)
[2025-04-20] MEDS: PANTOPRAZOLE DR 20 MG TABLET PO ×2 (06:10→09:00)
[2025-04-20 06:11] LABS: Add Manual Diff / Slide Review NO; Hematocrit 34.9 % (36-46); Hemoglobin 11.3 g/dL (12.0-16.0); Lymphocytes Absolute Auto 2700 /uL (1100-4500); Mean Corpuscular HGB Conc 32.4 % (30-36); Mean Corpuscular Hemoglobin 24.4 PG (26-34); Mean Corpuscular Volume 75.1 fL (80-100); Platelet Count 313 X10^3/uL (150-400)
[2025-04-20] MEDS: INSULIN LISPRO 100 UNIT/ML 3ML VIAL SUBCUT (06:11)
[2025-04-20 06:27] LABS: Blood Urea Nitrogen 11 mg/dL (7-17); Calcium 8.2 mg/dL (8.4-10.2); Carbon Dioxide 22 mmol/L (22-32); Chloride 105 mmol/L (98-107); Cholesterol 141 mg/dL (140-199); Estimated Glomerular Filt Rate > 60 mL/min (>60); Glucose 281 mg/dL (70-99); HDL Cholesterol 29 mg/dL (40-60); HEMOLYSIS < 15 (0-50); Magnesium 1.7 mg/dL (1.6-2.3); Potassium 4.2 mmol/L (3.4-5.1); Sodium 135 mmol/L (137-145); Triglycerides 164 mg/dL (35-150)
[2025-04-20 06:30] LABS: Hemoglobin A1C% w Est Avg Glu 7.4 % (4.0-6.0)
[2025-04-20 06:39] LABS: Troponin I < 0.012 ng/mL (0.01-0.034)
[2025-04-20 06:57] LABS: TSH w/ Reflex to FT4 4.48 uIU/mL (0.47-4.68)
--- NOTE | 2025-04-20 07:38 | PM.PN.1 ---
Subjective Subjective Date Patient Seen: 04/20/25 Interval history: She has had complete resolution of her left chest, left shoulder, left arm and left neck/chin pain this morning. 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 This is an activity she does many times a day so an overuse acute injury does not seem as likely. Because of her shorter stature her BMI is higher than she looks and so she will need to do a 2 day cardiac scan most likely. The troponin is less than 0.012. The A1c is 7.4. The BMP is normal and the CBC is notable only for a hemoglobin of 11.3. She has a strong family history of coronary artery disease with her father having had a CABG. 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 The TSH is 4.48 and the LDL is 79 with a total cholesterol of 141. Exam Vital Signs (past 8 hours): - 04/20/25 00:30 04/20/25 00:31 04/20/25 00:55 Temperature Pulse Rate 75 72 76 Respiratory Rate 17 16 Blood Pressure 145/65 H Pulse Oximetry 98 96 98 Oxygen Delivery Method Room Air Oxygen Flow Rate 04/20/25 00:55 04/20/25 01:00 04/20/25 01:00 Temperature Pulse Rate 75 Respiratory Rate 12 Blood Pressure 160/72 H 147/67 H Pulse Oximetry 97 Oxygen Delivery Method Oxygen Flow Rate 04/20/25 01:36 04/20/25 02:10 04/20/25 04:00 Temperature 97.8 F 97.8 F Pulse Rate 74 72 Respiratory Rate 16 16 Blood Pressure 112/88 133/73 Pulse Oximetry 99 94 Oxygen Delivery Method Room Air Oxygen Flow Rate 0 0 Oxygen Delivery Method Room Air Oxygen Flow Rate 0 Narrative Exam Narrative: Quite impressive energy levels. No word searching noted. Oriented x3. No apparent distress. No chest wall tenderness Heart is regular rate and rhythm without murmur Lungs are clear to auscultation bilaterally Abdomen is soft, nontender, no organomegaly. Extremities have no ankle edema Objective Labs 04/20/25 06:00 04/20/25 06:00 Labs: Laboratory Results - last 24 hr 04/19/25 04/19/25 04/20/25 20:16 22:35 02:35 WBC 9.7 RBC 4.88 Hgb 12.0 Hct 36.5 MCV 74.7 L MCH 24.5 L MCHC 32.7 RDW 17.5 H Plt Count 352 Neut % (Auto) 61.7 Lymph % (Auto) 30.3 [place] % (Auto) 5.4 Eos % (Auto) 1.9 L Baso % (Auto) 0.7 Neut # (Auto) 6000 Lymph # (Auto) 2900 [place] # (Auto) 500 Eos # (Auto) 200 Baso # (Auto) 100 PT 11.0 INR 1.0 APTT 31 Sodium 135 L Potassium 4.2 Chloride 104 Carbon Dioxide 23 BUN 9 Creatinine 0.65 Estimated GFR > 60 BUN/Creatinine Ratio 13.8 Glucose 159 H POC Whole Bld Glucose 92 Hemoglobin A1c Calcium 9.4 Magnesium 1.8 Total Bilirubin 0.6 AST 30 ALT 21 Alkaline Phosphatase 72 Total Creatine Kinase 125 Troponin I < 0.012 < 0.012 NT-Pro-B Natriuret Pep 72 Total Protein 7.8 Albumin 4.8 Globulin 3.0 Albumin/Globulin Ratio 1.6 Triglycerides Cholesterol LDL Cholesterol, Calc HDL Cholesterol Lipase 59 TSH 04/20/25 04/20/25 05:58 06:00 WBC 9.5 RBC 4.65 Hgb 11.3 L Hct 34.9 L MCV 75.1 L MCH 24.4 L MCHC 32.4 RDW 17.5 H Plt Count 313 Neut % (Auto) 63.9 Lymph % (Auto) 28.3 [place] % (Auto) 4.9 Eos % (Auto) 2.2 Baso % (Auto) 0.7 Neut # (Auto) 6100 Lymph # (Auto) 2700 [place] # (Auto) 500 Eos # (Auto) 200 Baso # (Auto) 100 PT INR APTT Sodium 135 L Potassium 4.2 Chloride 105 Carbon Dioxide 22 BUN 11 Creatinine 0.65 Estimated GFR > 60 BUN/Creatinine Ratio 16.9 Glucose 281 H D POC Whole Bld Glucose 292 H D Hemoglobin A1c 7.4 H Calcium 8.2 L Magnesium 1.7 Total Bilirubin AST ALT Alkaline Phosphatase Total Creatine Kinase Troponin I < 0.012 NT-Pro-B Natriuret Pep Total Protein Albumin Globulin Albumin/Globulin Ratio Triglycerides 164 H Cholesterol 141 LDL Cholesterol, Calc 79 HDL Cholesterol 29 L Lipase TSH 4.48 [facility] Social History household members: spouse Smoking Status: Current every day smoker alcohol intake: never Assessment & Plan Assessment & Plan narrative: 1. Acute unstable angina with no prior history of CAD but multiple personal and family risk factors for CAD, now resolved, POA - Risk factors: DM2, HTN, Hyperlipidemia, TUD, FH early CAD - negative troponin, EKG - ED discussed with cardiology - admitted to observation, telemetry - MIBI scan - 2 day per BMI 41 - troponin trending - TSH 4.48, A1C 7.4, Chol 141 - negative LFTs, lipase, renal dysfunction - no signs of acute infection - NPO for stress test - received ASA - opiate for severe pain - O2 to SaO2>92% - PPI - if stress test negative and no recurrence of chest pain, likely discharge tomorrow 2. DM2, on insulin - NPO for stress test - holding Lantus, metformin - Insulin pump - SSI - check A1c 3. HTN - continue ARB, thiazide diuretic, amlodipine - goal JNC <130/90 4. Hyperlipidemia - continue statin - increase Atorvastatin to 40 mg due to exertional CP and strong FH. - Total Chol 141, LDL 79 5. Hypothyroidism - continue replacement therapy - TSH 4.48 6. Tobacco use disorder, ongoing - cessation counseling - continue buproprion 7. Microcytosis - Hgb stable - 11.3 - MCV is improved from 2022 - not on iron supplementation - outpatient follow up for iron supplementation, stool occult, or colonoscopy Code: Full DVT prophylaxis: SCDs Dispo: home or transfer if ischemia on scan Time-Based Coding :: [TOTAL MINUTES] spent with patient and on the chart (including review of chart, obtaining history, exam, reviewing outside data, placing orders, documenting exam and treatment plan, and counseling patient) on [DATE].
--- NOTE | 2025-04-20 08:35 | CM.DANOTE ---
Initial DCP Assessment Visit Note Reviewed EMR and team rounds for pt's medical status and updates. Met with pt at bedside to introduce self and role, pt was found to be alert/oriented, resting in bed, her spouse was also at bedside. She denies any cardiac symptoms or discomfort today. Pt lives independently with her spouse in their own home in [place]. Her spouse will transport her back home later this morning after she completes her nuclear stress test. No CM d/c needs are identified at this time. Payor: [employer] PCP: Herminia Tracey Pt is a 45 year-old F who presented to the ED last night with c/o L-sided chest pain that radiated to her chest and jaw. Symptoms were resolved prior to arriving at the ED. Cardiology was consulted and they did not feel that she needed to be transferred, and could be monitored here overnight with the plan for the nuclear stress test in the am (today). If clear, pt will be medically discharged following the test. Discharge Planning/Care Management CM Discharge Assessment Start: 04/20/25 01:36 Freq: Status: Active Protocol: Document 04/20/25 08:27 DPL (Rec: 04/20/25 08:29 DPL [id number]) Discharge Planning Assessment Assigned Discharge LUCERO Sequeira [employer] Advance Directives? No History Provided By Patient,Medical Record Has Patient been No admitted in last 30 days? Prior Living House Arrangements Household Members spouse Type of Drives own vehicle transporation used prior to admit Independent with ADL Yes 's Is patient alert and Yes oriented? Comment OP Cardiology Barriers to No Discharge Discharge Plan Home Transportation Partner Arrangement Referrals Initiated None needed Whiteboard Updated Yes in Patient Room with name and ext. 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
[2025-04-20] MEDS: ATORVASTATIN 20 MG TABLET 10 MG PO (08:59)
[2025-04-20] MEDS: LOSARTAN 50 MG TABLET PO (09:00)
[2025-04-20] MEDS: MAGNESIUM CHLORIDE 64 MG TABLET 128 MG PO (11:03)
--- NOTE | 2025-04-20 15:28 | DIET.CONS ---
Dietary Consultation Note Admission Date: 04/20/2025 01:26 Assessment: 45 y F admitted for chest pain and stress test. Dietitian consulted for insulin pump. Met with pt at bedside, reports using medtronic pump/cgm. No concerns with insulin pump or receiving supplies for DM management. Last A1c 7.4%. Pt had no nutrition or DM related questions/concerns. F/u PRN, monitoring BG. Ht: 160.02 cm Wt: 105 kg BMI: 41.2 UBW: 103.419 kg on 06/2023 Last BM: 04/19/25 (04/20/25 01:36) MNA: 14 Ozzie Score: 23 Diet: 04/20/25 Breakfast Heart Healthy Diet Diet Modifications: carb consistent Sodium Level: 2 gm Sodium Food Texture: Level 7 - Regular Liquid Consistency: Level 0 - Thin Labs: RBC 4.65 X10^6/uL (4.0-5.2) 04/20/25 06:00 Hgb 11.3 g/dL (12.0-16.0) L 04/20/25 06:00 Hct 34.9 % (36-46) L 04/20/25 06:00 Creatinine 0.65 mg/dL (0.52-1.04) 04/20/25 06:00 Hemoglobin A1c 7.4 % (4.0-6.0) H 04/20/25 06:00 NT-Pro-B Natriuret Pep 72 pg/mL (<125) 04/19/25 20:16 Electronically Signed by: Liat Marin 04/20/25 15:28 Clinical Dietitian [address] [address]
[2025-04-20] MEDS: ATORVASTATIN 20 MG TABLET 40 MG PO (20:48)
[2025-04-21] VITALS: BP 105/56; PULSE 79; RESP 17; TEMP 36.6; O2SAT 99
[2025-04-21] MEDS: INSULIN PUMP 1 REQUEST MISC (00:03)
[2025-04-21 04:38] VITALS: BP 127/50; PULSE 72; RESP 16; TEMP 36.2; O2SAT 96
[2025-04-21] MEDS: LEVOTHYROXINE 75 MCG TABLET PO (05:09)
[2025-04-21] MEDS: LEVOTHYROXINE 100 MCG TABLET 200 MCG PO (05:09)
[2025-04-21 08:09] VITALS: BP 117/65; PULSE 72; RESP 16; TEMP 36.6; O2SAT 96
[2025-04-21 08:23] VITALS: BP 117/65; PULSE 72
[2025-04-21] MEDS: AMLODIPINE 5 MG TABLET 2.5 MG PO (08:23)
[2025-04-21] MEDS: LOSARTAN 50 MG TABLET PO (08:23)
--- NOTE | 2025-04-21 11:01 | DI.CT.S_ITS ---
PROCEDURE: CT HEAD/BRAIN WO CON INDICATIONS: aphasia TECHNIQUE: Noncontrast 4.5 mm thick angled axial sections acquired from the foramen magnum to the vertex, with coronal and sagittal reformats. For radiation dose reduction, the following was used: automated exposure control, adjustment of mA and/or kV according to patient size. COMPARISON: [facility], CT, HEAD WITHOUT CONTRAST, 06/06/2017, 20:53. FINDINGS: Image quality: Diagnostic. CSF spaces: Basal cisterns are patent. No extra-axial fluid collections. Ventricles are normal in size and shape. Brain: No midline shift. No intracranial mass effect or hemorrhage. Morrow- white matter interface is normal. A thin calcification is seen in the deep white matter of the lentiform nuclei on the left, and posterolateral to this is a mildly prominent perivascular space. No mass or acute/subacute ischemic injury or hemorrhage is found. Skull and face: Calvarium and visualized facial bones are intact, without suspicious lesions. Sinuses: Visualized sinuses and mastoids are clear. IMPRESSION: No acute intracranial pathology. Source of current symptoms is not seen. Dictated by: Ryan Parsons M.D. on 04/21/2025 at 11:28 Approved by: Ryan Parsons M.D. on 04/21/2025 at 11:30
[2025-04-21 12:00] VITALS: BP 122/75; PULSE 82; RESP 18; TEMP 36.5; O2SAT 98
--- NOTE | 2025-04-21 12:17 | DI.ECHO.S_ITS ---
[facility] : : [address] : : [place] : : [id number] : : Phone: [phone] Echocardiogram Report + + :Name: RASTA FERREIRA Study Date: 04/21/2025 Height: 63 in : :Hospital ReadingLocation: Weight: 231 lb : : Gender: Female BSA: 2.1 m2 : :: 1980 Age: 45 yrs BP: 117/65 mmHg: :Reason For Study: APHASIA, CHEST PAIN : :Ordering Physician: MIREYA, : :JOSH Mays Performed By: Keyana Cummins : :Referring: JOSH GOMES : + + Interpretation Summary The ejection fraction is estimated to be 60-65%. Diastolic parameters suggest probable normal left ventricular diastolic function and normal filling pressures. Injection of contrast documented no interatrial shunt. The right ventricle is normal in size and function. No valvular abnormalities. Pulmonary artery pressures cannot be estimated because of the lack of a measurable TR jet velocity but the IVC suggests a CVP of around 3 mmHg. Procedure: A two-dimensional transthoracic echocardiogram with color flow and Doppler was performed. The study quality was technically adequate. There is no prior echocardiogram noted for this patient. A saline contrast injection was performed to assess for cardiac shunting. The patient was in sinus rhythm with heart rates between 66-84 bpm during the exam. Left Ventricle: The left ventricle is normal in size and wall thickness. The ejection fraction is estimated to be 60-65%. Diastolic parameters suggest probable normal left ventricular diastolic function and normal filling pressures. Right Ventricle: The right ventricle is normal in size and function. Atria: The left atrial size is normal. Right atrial size is normal. There is no Doppler evidence for an interatrial shunt. Injection of contrast documented no interatrial shunt. Mitral Valve: The mitral valve leaflets appear mildly thickened, but open well. There is trace mitral regurgitation. Aortic Valve: The aortic valve is trileaflet. The aortic valve opens well. There is no aortic valve stenosis. There is trace aortic regurgitation. Tricuspid Valve: The tricuspid valve leaflets are thin and pliable. There is trace tricuspid regurgitation. Pulmonary artery pressures cannot be estimated because of the lack of a measurable TR jet velocity but the IVC suggests a CVP of around 3 mmHg. Pulmonic Valve: The pulmonic valve leaflets are thin and pliable; valve motion is normal. There is no pulmonic valvular regurgitation. Great Vessels: The aortic root is normal size. The dimensions of the ascending aorta are normal. The IVC is of normal diameter and collapses greater than 50% with a sniff. This suggests a low right atrial pressure of 3 mm Hg. Pericardium/ Pleura There is no pericardial effusion. There is no pleural effusion. MMode/2D Measurements & Calculations LVIDd: 4.5 cm LVOT diam: 2.1 cm LVIDs: 3.0 cm Ao root diam: 3.3 cm FS: 33.4 % asc Aorta Diam: 3.1 cm IVSd: 0.81 cm LVPWd: 0.85 cm LV de [place] rosa. diameter/BSA (cm/m^2): 2.2 LV sys. diameter/BSA (cm/m^2): 1.4 LA A2 area: 18.4 cm2 RA long axis: 5.1 cm LA A4 area: 15.2 cm2 RA area: 13.1 cm2 LA length (vol): 4.5 cm RA vol: 28.4 ml LA vol: 52.2 ml RA : 13.8 ml/m2 LA vol index: 25.4 ml/m2 IVC diam: 1.5 cm RVD1 (basal): 3.2 cm RVD2 (mid): 3.5 cm TAPSE: 2.2 cm Doppler Measurements & Calculations Ao V2 max: 140.3 cm/sec LVOT Max Fermin: 123.8 cm/sec Ao V2 mean: 96.8 cm/sec LV V1 max P.1 mmHg Ao max P.9 mmHg LV V1 VTI: 25.6 cm Ao mean P.2 mmHg MAINOR(I,D): 3.2 cm2 Ao V2 VTI: 28.7 cm MAINOR(V,D): 3.1 cm2 sev ratio: 0.89 MAINOR indexed to BSA (cm^2/m^2): 1.5 MV E max fermin: 88.1 cm/sec PA V2 max: 79.2 cm/sec MV A max fermin: 85.5 cm/sec PA V2 mean: 56.6 cm/sec MV E/A: 1.0 PA mean P.4 mmHg Med Peak E' Fermin: 9.3 cm/sec PA pr(Accel): 13.3 mmHg E/E' med: 9.5 Lat Peak E' Fermin: 11.7 cm/sec E/E' lat: 7.5 E/e' average: 8.5 MV dec time: 0.20 sec SV(LVOT): 91.1 ml Reading Physician:04:43 PM
[2025-04-21] MEDS: ASPIRIN EC 81 MG TABLET PO (13:39)
--- NOTE | 2025-04-21 15:09 | CM.DPC ---
DCP Cont: Per MD, pt had second part of her stress test this morning and awaiting results to be read to determine if pt can d/c home with outpt f/u or if pt needs hospital transfer for higher level of Cardiology needs. 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 LUCERO Fuller
--- NOTE | 2025-04-21 17:04 | PM.DS.1 ---
History of Present Illness History of Present Illness Chief complaint: chest pain n/v left arm pain Narrative: From H&P: 45F with PMH of DM2 on insulin, HTN, hyperlipidemia, hypothyroidism, tobacco use disorder ongoing, FH of CAD with father having CABG age 50 but no personal h/o CAD presents with acute left sharp chest pain with mild exertion at 7p and radiating to left side of jaw, back, and arm. Self-resolved. No h/o cardiac cath. Reports may have had stress test in 2018/2018. No other symptoms, injuries, trauma; including sweats, nausea/vomiting, fever, chills, cough. Does have hormonal IUD. In ED, labs including troponin were acutely unremarkable. EKG was unremarkable. ED spoke to cardiology who recommended nuclear stress which can apparently be done at this hospital on 04/20. Discharge Providers Provider Date of admission: 04/20/25 01:26 Discharge Date: 04/21/25 Primary care physician: Herminia Tracey MD Consults: None. Discharge provider: Jose Tubbs MD Summary Hospital Course Discharge Diagnosis: 1. Chest pain with normal Lexiscan. Present on admission and resolved. 2. Transient difficulty speaking, present on admission and resolved. 3. DM 2, stable. A1c 7.4. 4. Hypertension, stable. 5. Hyperlipidemia, stable cholesterol 141, LDL 79. 6. Hypothyroidism, stable. TSH 4.48. 7. Tobacco use, active. 8. Obesity with BMI, active. Hospital Course: She was admitted with atypical chest pain. She had a negative ECG and troponins. Her 2 day Lexiscan stress test was unremarkable and read as low risk. On the day of discharge she noticed transient speech difficulties. She described this is stuttering or difficulty getting a word out with eventually being able to get the word out. She had no other neurologic symptoms or signs. She would 1 prior episode of possible seizure episode several years prior. A CT of the brain was ordered and was unremarkable and a 2D echo was ordered and was also unremarkable. 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 She was no clear history of atrial fibrillation. She was currently changing primary care providers. She was given baby aspirin while in the hospital and takes rosuvastatin chronically. She was felt to be stable for discharge and did not have a clear history to support a diagnosis of TIA. Status at Discharge Cognitive/behavioral status at discharge: oriented Functional status at discharge: independent ambulation Overall status at discharge: patient is back to baseline Time Spent with Patient Time spent: Greater than 30 minutes Exam Vital Signs (past 8 hours): - 04/21/25 12:00 Temperature 97.7 F Pulse Rate 82 Respiratory Rate 18 Blood Pressure 122/75 Pulse Oximetry 98 Oxygen Flow Rate 0 Oxygen Delivery Method Room Air Oxygen Flow Rate 0 Narrative Exam Narrative: NAD, alert and oriented. Fluent speech. Lungs are clear, normal rate and effort. Heart is regular, no murmur gallop or rub. Abdomen is soft, non distended. Extremities are free of edema. Normal speech, normal cranial nerves. Normal motor strength and gait. Objective ECG Impression: Rate: 72 P: 73 TX: 164 QRS: 50 QRSD: 88 T: 47 QT: 418 QTc: 457 Interpretive Statements Normal sinus rhythm Imaging Multiple studies:: Radiologist's impression: CT brain: No acute intracranial pathology. Source of current symptoms is not seen. Echo: The ejection fraction is estimated to be 60-65%. Diastolic parameters suggest probable normal left ventricular diastolic function and normal filling pressures. Injection of contrast documented no interatrial shunt. The right ventricle is normal in size and function. No valvular abnormalities. Pulmonary artery pressures cannot be estimated because of the lack of a measurable TR jet velocity but the IVC suggests a CVP of around 3 mmHg. Cardiac stress test: 1. Negative exercise myocardial perfusion scan for ischemia and infarction. 2. Below average exercise tolerance. Chest x-ray: No acute cardiopulmonary abnormality is seen. Labs 04/20/25 06:00 04/20/25 06:00 Labs: Laboratory Results - last 24 hr 04/20/25 04/21/25 04/21/25 19:58 08:36 11:49 POC Whole Bld Glucose 143 H 158 H 309 H D 04/21/25 16:51 POC Whole Bld Glucose 284 H [facility] Social History household members: spouse Smoking Status: Current every day smoker alcohol intake: never Discharge Assessment & Plan Assessment and Plan Assessment: 1. Chest pain with normal Lexiscan. Present on admission and resolved. 2. Transient difficulty speaking, present on admission and resolved. 3. DM 2, stable. A1c 7.4. 4. Hypertension, stable. 5. Hyperlipidemia, stable cholesterol 141, LDL 79. 6. Hypothyroidism, stable. TSH 4.48. 7. Tobacco use, active. 8. Obesity with BMI, active. Plan of Treatment: Discharge home, we will start a baby aspirin once a day. He was asked to checking with her physician and review current events. The question whether or not she would require another cardiac monitoring will be left to her primary care physician. Discharge Plan Discharge Plan Patient Disposition: Home Provider Discharge Comment: Stable for discharge home. Discharge orders & Medications Prescriptions: New aspirin 81 mg Tablet,Delayed Release (Dr/Ec) 81 mg PO DAILY Qty: 30 1RF Continued amlodipine 2.5 mg tablet 2.5 mg PO DAILY metformin 500 mg tablet 250 mg PO BID losartan-hydrochlorothiazide 50-12.5 mg tablet 1 tab PO DAILY INSULIN GLARGINE 10ML (LANTUS) Qty: 0 INSULIN HUMAN LISPRO 10ML (HUMALOG) 2 units SQ Qty: 0 levothyroxine 200 mcg tablet 200 mcg PO DAILY rosuvastatin 5 mg tablet 5 mg PO DAILY Mirena 20 mcg/24 hours (6 yrs) 52 mg intrauterine device intrauterine bupropion HCl 150 mg tablet extended release 24 hr 300 mg PO QAM levothyroxine 25 mcg capsule 75 mcg PO DAILY Follow up/Referrals: Herminia Tracey MD [Primary Care Provider, Family Practice] Diet/Activity/Treatments Diet: Carb-consistent/Diabetic Visit Report/Discharge Packet Stand Alone Forms: Patient Portal/API, Stroke Signs & Symptoms Discharge Data Primary Care Provider: Herminia Tracey Attending Provider: Chago Araya Admit Date/Time: 04/20/25 01:26
--- NOTE | 2025-04-21 17:35 | PC.NURSE ---
Day shift: Discharge instructions gone over with patient by YANET Enriquez. Patient stated understanding, all questions answered. PIV and tele removed prior to discharge. All belongings with patient. YANET Enriquez escorted patient to exit.
== END 2025-04-21 17:36 | disposition home or self-care (01) ==
LOC: ED 04-20 01:16 → AC 04-20 01:28
PROVIDERS: Admitting Provider Internal Medicine; Emergency Provider Emergency Medicine; PCP Family Medicine; Referring Provider Emergency Medicine; Visit Provider Internal Medicine
DX: R07.9 Chest pain, unspecified (principal); E11.9 Type 2 diabetes mellitus without complications; I10 Essential (primary) hypertension; E78.5 Hyperlipidemia, unspecified; E03.9 Hypothyroidism, unspecified; F17.210 Nicotine dependence, cigarettes, uncomplicated; E66.9 Obesity, unspecified; Z68.41 Body mass index [BMI] 40.0-44.9, adult; Z79.4 Long term (current) use of insulin
CPT/HCPCS: 36415; 70450; 71045; 78452; 80048; 80053; 80061; 82550; 82962; 83036; 83690; 83735; 83880; 84443; 84484; 85025; 85610; 85730; 93005; 93010; 93017; 93306; 96361; 96372; 96374; 99284; 99291; G0378; A9502; J1815; J2270